=== PATIENT | male | born 1985 | race Caucasian/White ===

== ENCOUNTER → 2020-02-02 14:52 | Outpatient (CLI) | payer BC, SELFPAY ==
[2020-02-02 17:04] LABS: Coronavirus 19 IgG Antibody Negative (Negative); Coronavirus 19 IgM Antibody Negative (Negative)
== END ==
PROVIDERS: Visit Provider Urology
DX: Z01.818 Encounter for other preprocedural examination (principal); Z30.2 Encounter for sterilization
CPT/HCPCS: 36415; 86328

== ENCOUNTER 2020-02-04 08:12 | Day surgery (SDC) | payer BC, SELFPAY ==
[2020-02-02 11:09] VITALS: BMI 46.2
[2020-02-04 08:46] VITALS: BP 131/71; PULSE 74; RESP 16; TEMP 36.9; O2SAT 96
[2020-02-04 10:00] VITALS: BP 137/72; PULSE 72; RESP 16; TEMP 36.7; O2SAT 96
[2020-02-04 10:20] VITALS: BP 137/72; PULSE 72; RESP 16; TEMP 36.7; O2SAT 96
--- NOTE | 2020-02-04 13:49 | HMH.OPNOTE ---
Date of procedure: 02/04/20 Pre-op Diagnosis:: Sterilization Post-op Diagnosis:: Sterilization Procedure performed:: Vasectomy Surgeon:: Gennaro Martinez MD Anesthesia: local Estimated blood loss (mL): 2 Clinical Note:: 34-year-old white male presents for vasectomy today. His initial vasectomy consultation was in June and we went over the operative procedure complications and postoperative instructions. Operative findings:: Patient with normal testicular exam. Procedure successful under local anesthetic. Operative note:: Patient taken to the operating room after informed consent was obtained. On the stretcher he was prepped and draped in the standard surgical fashion. Testicular exam was normal. The left vas was grasped in brought up to the midline raphae. Local anesthetic was placed in and around the skin and facets. After 2 minutes a skin incision was made for about 1/2 inch. A tenaculum was used to grasp the vas was brought up through the incision. Scalpel was used to incise the tissue overlying the vas and the vas proper was grasped with a second tenaculum and the adventitial tissue was dissected away from the vas proper. One clip was placed distally and 2 proximally. A 1 cm segment excised. The ends of the vas were then cauterized. Hemostasis achieved and the vas was dropped back into the left hemiscrotum. Identical procedure was performed on the right side. After both vas were completed a 3-0 chromic was placed in a horizontal mattress fashion in the skin and closed without difficulty. Compression dressing applied. Patient tolerated procedure well and there were no complications. Discharged to the recovery in stable condition will be discharged home with routine instructions and medications. Condition: stable Disposition: same day Specimens:: None Complications:: None
== END 2020-02-04 10:20 | disposition home or self-care (01) ==
PROVIDERS: PCP Physician Assistant; Visit Provider Urology
PROC: (CPT 55250; principal; 2020-02-04 09:00)
DX: Z30.2 Encounter for sterilization (principal); I10 Essential (primary) hypertension; Z82.49 Family history of ischemic heart disease and other diseases of the circulatory system; Z83.3 Family history of diabetes mellitus; Z82.5 Family history of asthma and other chronic lower respiratory diseases; Z82.0 Family history of epilepsy and other diseases of the nervous system; Z79.899 Other long term (current) drug therapy; Z88.0 Allergy status to penicillin
CPT/HCPCS: 55250

== ENCOUNTER 2020-02-14 14:00 | Emergency (ER) | payer BC, SELFPAY ==
[2020-02-14 14:06] VITALS: BP 160/85; PULSE 60; RESP 20; O2SAT 99; BMI 46.2
--- NOTE | 2020-02-14 14:21 | HMH.EDGENADL ---
ED Disposition Clinical Impression: Kidney stone on right side Disposition: Home, Self-Care Condition on Discharge: Good Instructions: DI for Kidney Stones, DI for Acute Abdomen Additional Instructions: You have been evaluated for right flank pain, diagnosed with a right-sided kidney stone. The stone appears to be in transit. Please continue to take ibuprofen and Flomax as prescribed. Take Zofran for nausea. Follow-up with urology in clinic. Return to the emergency department for any fevers, chills, vomiting, other concerns. Prescriptions: Tamsulosin HCl [Flomax 0.4mg capsule] 0.4 mg PO HS #5 cap Transmission Status: Received by [facility] # Ketorolac Tromethamine [Toradol 10mg tablet] 10 mg PO Q6H 3 Days #20 tab Transmission Status: Received by [facility] # Ondansetron [Zofran 4mg ODT] 4 mg PO Q6 PRN #20 tab.rapdis PRN Reason: Nausea Transmission Status: Received by [facility] #[id number] Referrals: Mariajose Moran PA [Primary Care Provider] - Gennaro Martinez MD [Staff Physician] - Time of Disposition: 15:55 - Critical Care Critical Care Time: No Attestation: On , the high probability of a clinically significant, sudden or life threatening deterioration of the following system(s) required my full and direct attention, intervention and personal management. The time I documented below is in addition to time spent performing reported procedures but includes the following listed in this critical care notation. Medical Decision Making - Medical Records Medical records reviewed: Yes: I reviewed the patient's medical records. - Jagdish Inquiry Pt receiving controlled substance: No Vital Signs: 02/14/20 14:06 02/14/20 14:40 Pulse Rate [Radial] 60 76 Respiratory Rate 20 20 Blood Pressure [Right Arm] 160/85 H 114/69 Blood Pressure Mean [Right Arm] 110 84 Blood Pressure Source [Right Arm] Automatic Cuff Automatic Cuff Blood Pressure Position [Right Arm] Sitting 02 Sat by Pulse Oximetry 99 98 Oxygen Delivery Method Room Air Room Air - Lab Data Lab Results 02/14/20 14:11: WBC 8.2, RBC 5.37, Hgb 16.2, Hct 46.5, MCV 86.6, MCH 30.2, MCHC 34.9, RDW 13.7, Plt Count 196, MPV 7.3 L, Neut % (Auto) 67.4, Lymph % (Auto) 25.5, [place] % (Auto) 5.8, Eos % (Auto) 1.1, Baso % (Auto) 0.3, Neut # (Auto) 5.5, Lymph # (Auto) 2.1, [place] # (Auto) 0.5, Eos # (Auto) 0.1, Baso # (Auto) 0.0 02/14/20 14:11: Sodium 138, Potassium 4.2, Chloride 102, Carbon Dioxide 27, Anion Gap 13.2, BUN 19, Creatinine 1.20, Estimated Creat Clear 103, Estimated GFR 70, Est GFR ( Amer) 85, Glucose 104 H, Calcium 9.2, Total Bilirubin 0.6, AST 42, ALT 70, Alkaline Phosphatase 90, Total Protein 7.3, Albumin 4.4, Globulin 2.9, Albumin/Globulin Ratio 1.5 02/14/20 14:49: Urine Color Yellow, Urine Appearance Clear, Urine pH 6.0, Ur Specific [place] 1.020, Urine Protein Negative, Urine Glucose (UA) Negative, Urine Ketones Trace, Urine Blood Trace-i, Urine Nitrate Negative, Urine Bilirubin Negative, Urine Urobilinogen 1.0, Ur Leukocyte Esterase Negative, Urine WBC Occasional, Ur Squamous Epith Cells 3-5, Urine Bacteria Trace Result diagrams: 02/14/20 14:11 02/14/20 14:11 Orders (Tests/Meds): ED MEDICATIONS Discontinued Medications Generic Name Dose Route Start Last Admin Trade Name Roscoe PRN Reason Stop Dose Admin Ioversol 75 ml 02/14/20 15:14 02/14/20 15:15 Rad-Optiray 350 100ml Vial IV 02/14/20 15:15 75 ml ONCE ONE Administration Protocol Ketorolac Tromethamine 30 mg 02/14/20 14:17 02/14/20 14:18 Toradol 30mg/Ml Vial IV 02/14/20 14:18 30 mg ONCE ONE Administration Sodium Chloride 10 ml 02/14/20 15:14 02/14/20 15:15 Rad-Saline Flush 10ml Syringe IV 02/14/20 15:15 10 ml ONCE ONE Administration - CT Data CT Scan: Abdomen Time Received: 15:[address] Reviewed: Yes: I have reviewed the patient's CT results, I have viewed the radiologist's interpret
--- NOTE | 2020-02-14 14:28 | CT_ITS ---
PROCEDURE: CT ABDOMEN PELVIS W CON CLINICAL INDICATION: right flank pain COMPARISON: ABDPELW CT ABD PELVIS W/ CONTRAST from 03/07/2017 TECHNIQUE: IV Contrast: 75ML OPTIRAY 350 Oral Contrast None Axial images obtained with sagittal and coronal reformats. All CT scans at the facility use one or more dose reduction, viz: automated exposure control, ma/kV adjustment per patient size (including targeted exams where dose is matched to indication, i.e. head), or iterative reconstruction technique. FINDINGS: LOWER THORAX: No acute finding ABDOMEN & PELVIS: The liver, gallbladder, spleen, adrenal glands, and pancreas have an unremarkable appearance. There is a nonobstructing 3 mm stone in the lower pole of the left kidney. Delayed nephrogram is noted on the right with minimal dilatation of the right renal collecting system secondary to a 3 mm stone at the right ureterovesical junction. No intestinal obstruction or free air. There are few scattered small mesenteric lymph nodes which are nonspecific. No evidence intestinal obstruction or free air. There is given history of prior appendectomy. Part of the left anterior abdominal wall is not included on the exam. There is colonic diverticulosis but no evidence of diverticulitis. There are mild degenerative changes in the spine IMPRESSION: 3 mm right ureterovesical junction stone with mild right-sided obstructive uropathy. Nonobstructing left nephrolithiasis. Dictated by: Supa Petty MD 02/14/2020 15:49 Electronically signed by Supa Petty MD in [place] 02/14/2020 15:49
[2020-02-14 14:29] LABS: Basophils % 0.3 % (0.1-2.0); Eosinophils # 0.1 K/mm3 (0.0-0.4); Eosinophils % 1.1 % (0.1-12.0); Hematocrit 46.5 % (42.0-52.0); Hemoglobin 16.2 g/dL (14.1-18.0); Lymphocytes # 2.1 K/mm3 (0.7-4.5); Lymphocytes % 25.5 % (10-50); Mean Corpuscular HGB Conc 34.9 g/dL (31.8-35.4); Mean Corpuscular Hemoglobin 30.2 pg (27.0-31.2); Mean Corpuscular Volume 86.6 fl (80-94); Mean Platelet Volume 7.3 fl (7.4-10.4); Monocytes # 0.5 K/mm3 (0.1-1.0); Monocytes % 5.8 % (1.7-9.3); Neutrophils # 5.5 K/mm3 (1.8-7.8); Neutrophils % 67.4 % (37.0-80.0); Platelet Count 196 K/mm3 (142-424); Red Blood Count 5.37 M/mm3 (4.60-6.20); Red Cell Distribution Width 13.7 % (11.5-17.5); White Blood Count 8.2 K/mm3 (4.8-10.8)
[2020-02-14 14:30] LABS: Chloride 102 mmol/L (98-107); Potassium 4.2 mmoL/L (3.5-5.1); Sodium 138 mmol/L (136-145)
[2020-02-14 14:33] LABS: Alanine Aminotransferase 70 U/L (12-78); Albumin Level 4.4 g/dl (3.5-5.0); Albumin/Globulin Ratio 1.5 (1.1-1.8); Alkaline Phosphatase 90 U/L (38-126); Anion Gap 13.2 mEq/L (5-15); Aspartate Amino Transferase 42 U/L (17-59); Bilirubin,Total 0.6 mg/dl (0.2-1.3); Blood Urea Nitrogen 19 mg/dl (9-20); Calcium 9.2 mg/dl (8.4-10.2); Carbon Dioxide 27 mmol/L (22.0-30.0); Creatinine Clearance Estimated 103 mL/min (50-200); Estimated Glomerular Filt Rate 70 ml/min (>60); GFR (African American) 85 ML/MIN (>60); Globulin 2.9 g/dL (1.3-3.2); Glucose 104 mg/dl (74-100); Total Protein,Serum 7.3 g/dl (6.3-8.2)
[2020-02-14 14:40] VITALS: BP 114/69; PULSE 76; RESP 20; O2SAT 98
[2020-02-14 14:57] LABS: Microscopic, Urine URINE MICROSCOPIC (MICROSCOPIC)
[2020-02-14 15:27] LABS: Appearance,Urine CLEAR (Clear); Bilirubin,Urine Negative (Negative); Blood, Urine TRACE-I (Negative); Color,Urine YELLOW (Yellow); Glucose,Urine (UA) Negative (Negative); Ketones,Urine TRACE (Negative); Leukocyte Esterase,Urine Negative (Negative); Nitrate,Urine Negative (Negative); Protein,Urine Negative (Negative)
[2020-02-14 15:37] LABS: Bacteria,Urine Trace /lpf; WBC,Urine Occasional #/hpf (0-3)
[2020-02-14 16:49] VITALS: BP 114/69; PULSE 76; RESP 20; TEMP 36.7; O2SAT 98
== END 2020-02-14 16:52 | disposition home or self-care (01) ==
PROVIDERS: Emergency Provider Emergency Medicine; PCP Physician Assistant
DX: N20.0 Calculus of kidney (principal); Z88.0 Allergy status to penicillin; R03.0 Elevated blood-pressure reading, without diagnosis of hypertension
CPT/HCPCS: 74177; 80053; 81001; 85025; 96374; 99283; Q9967

== ENCOUNTER 2020-08-24 08:32 | Emergency (ER) | payer BC, SELFPAY ==
[2020-08-24 08:43] VITALS: BP 174/107; PULSE 84; RESP 17; TEMP 36.6; O2SAT 98; BMI 44.9
--- NOTE | 2020-08-24 08:51 | HMH.EDHA ---
ED Disposition Clinical Impression: Headache Qualifiers: Headache type: tension-type Headache chronicity pattern: unspecified pattern Intractability: not intractable Qualified Code(s): G44.209 - Tension-type headache, unspecified, not intractable Disposition: Home, Self-Care Condition on Discharge: Good Referrals: María Field MD [Primary Care Provider] - 3 days - Critical Care Critical Care Time: No Attestation: On 08/24/20, the high probability of a clinically significant, sudden or life threatening deterioration of the following system(s) required my full and direct attention, intervention and personal management. The time I documented below is in addition to time spent performing reported procedures but includes the following listed in this critical care notation. Medical Decision Making - Medical Records Medical records reviewed: Yes: I reviewed the patient's medical records. - Jagdish Inquiry Pt receiving controlled substance: No Vital Signs: 08/24/20 08:43 Temperature 97.8 F Temperature Source Oral Pulse Rate [Right Brachial] 84 Respiratory Rate 17 Blood Pressure [Right Arm] 174/107 H Blood Pressure Mean [Right Arm] 129 Blood Pressure Source [Right Arm] Automatic Cuff Blood Pressure Position [Right Arm] Sitting 02 Sat by Pulse Oximetry 98 Oxygen Delivery Method Room Air Orders (Tests/Meds): ED MEDICATIONS Discontinued Medications Generic Name Dose Route Start Last Admin Trade Name Vitalyq PRN Reason Stop Dose Admin Dexamethasone 10 mg 08/24/20 08:50 08/24/20 08:59 Dexamethasone 4mg Tablet PO 08/24/20 08:51 10 mg ONCE ONE Administration Ketorolac Tromethamine 60 mg 08/24/20 08:50 08/24/20 08:58 Ketorolac 60mg/2ml Vial IM 08/24/20 08:51 60 mg ONCE ONE Administration Medical Decision Narrative: Patient with headache likely related to poorly controlled hypertension and increased stress. Advise close follow-up with primary care concerning blood pressure control and management of his anxiety/stress. He does not have any lateralizing motor or sensory changes that would suggest CVA. No recent illnesses or fevers that would suggest acute infectious etiology, intracranial abscess, meningitis. Symptoms are intermittent and no vertigo, unlikely acute intracranial mass. Slow, progressive symptoms are inconsistent with subarachnoid hemorrhage. Headache is not bad all the time and does improve with ibuprofen and Tylenol. Given Toradol, Decadron here with some improvement of symptoms. Headache HPI - General Chief Complaint: Headache Stated Complaint: migraine Time Seen by Provider: 08/24/20 08:51 Mode of Arrival: Ambulatory Limitations: No Limitations Description of Symptoms (Recalled from ER Triage Doc. by RN): Patient reports a severe headache x1 week. - History of Present Illness HPI Narrative: This is a 34-year-old male with a past medical history significant for hypertension who presents to the emergency department for slowly progressive headache over the last week. He has tried intermittent ibuprofen and Tylenol, but only when his headache is really bad . He states it is worse when he opens and closes his jaw and when he stretches the right side of his neck/shoulder. No trauma. No visual changes or lateralizing motor or sensory changes. He denies any fever. No vomiting. No photophobia. He does not typically have headaches, but does admit that he has not been taking his blood pressure medication as prescribed and has been under a lot of increased stress lately. He now has 7 children in his house as he just recently had to take in a family member's children and has 4 of his own. No chest pain. - Related Data Previous Rx's Medication Instructions Recorded Ketorolac Tromethamine [Toradol 10 mg PO Q6H 3 Days #20 tab 02/14/20 10mg tablet] Ondansetron [Zofran 4mg ODT] 4 mg PO Q6 PRN #20 tab.rapdis 02/14/20 Tamsulosin HCl [Flomax 0.4mg 0.4 mg PO HS #5
[2020-08-24 09:36] VITALS: BP 170/102; PULSE 80; RESP 17; TEMP 36.6; O2SAT 98
== END 2020-08-24 09:39 | disposition home or self-care (01) ==
PROVIDERS: Emergency Provider Emergency Medicine; PCP Family Medicine
DX: G44.209 Tension-type headache, unspecified, not intractable (principal); I10 Essential (primary) hypertension; Z79.899 Other long term (current) drug therapy; Z88.0 Allergy status to penicillin
CPT/HCPCS: 96372; 99281

== ENCOUNTER → 2020-10-19 15:35 | Outpatient (CLI) | payer BC, SELFPAY | PROVIDERS: PCP Family Medicine; Visit Provider Family Medicine | DX: G47.30 Sleep apnea, unspecified (principal); I10 Essential (primary) hypertension; R40.0 Somnolence; R06.83 Snoring; E66.9 Obesity, unspecified | CPT/HCPCS: G0399 ==

== ENCOUNTER 2021-05-08 10:50 | Emergency (ER) | payer BC, SELFPAY ==
[2021-05-08] VITALS (10 sets, daily range): BP systolic 121–141; BP diastolic 56–93; PULSE 77–112; RESP 18–20; TEMP 36.9–37.1; O2SAT 96–97; BMI 43.6
--- NOTE | 2021-05-08 11:05 | ECG_ITS ---
APPROVED REPORT Exam: Resting ECG HR:98 bpm ECG Measurements Heart Rate 98 AXES MT 162 P 20 QRSd 94 QRS 124 QT 346 T 13 QTc 441 Conclusion Normal sinus rhythm Right axis deviation Incomplete right bundle branch block Cannot rule out Anterior infarct, age undetermined Abnormal ECG Electronically signed by : Doug Alfonso MD 05/11/2021 14:32:08
--- NOTE | 2021-05-08 11:22 | XR_ITS ---
PROCEDURE: XR CHEST 2V CLINICAL HISTORY: shortness of breath COMPARISON: CR CXR2 CHEST-AP VIEW ONLY from 03/07/2017 FINDINGS: There is borderline cardiomegaly. The vascularity appears normal. There are subtle scattered ill-defined opacities in both perihilar regions and left lower lobe. The upper lung zarco are clear. There is no pleural fluid. Bilateral metallic nipple rings are seen. There is a large calcified right paratracheal node. IMPRESSION: Subtle ill-defined bilateral pneumonic infiltrates and probably early Covid19 pneumonia is a consideration Dictated by: Dr. Timo Hayward MD 05/08/2021 11:50 Dr. Timo Hayward MD in [place] 05/08/2021 11:50
--- NOTE | 2021-05-08 11:31 | HMH.EDGENADL ---
ED Disposition Clinical Impression: COVID-19 virus detected Disposition: Home, Self-Care Condition on Discharge: Good Referrals: María Field MD [Primary Care Provider] - - Critical Care Critical Care Time: No Attestation: On 05/08/21, the high probability of a clinically significant, sudden or life threatening deterioration of the following system(s) required my full and direct attention, intervention and personal management. The time I documented below is in addition to time spent performing reported procedures but includes the following listed in this critical care notation. Medical Decision Making - Medical Records Medical records reviewed: Yes: I reviewed the patient's medical records. - Jagdish Inquiry Pt receiving controlled substance: No Vital Signs: 05/08/21 11:24 05/08/21 13:00 05/08/21 13:15 Temperature 98.6 F 98.6 F 98.6 F Temperature Source Oral Oral Pulse Rate 88 82 Pulse Rate [Left Radial] 112 H Respiratory Rate 20 18 18 Blood Pressure 140/67 138/61 Blood Pressure [Right Arm] 141/93 H Blood Pressure Mean [Right Arm] 109 02 Sat by Pulse Oximetry 96 96 96 Oxygen Delivery Method Room Air Room Air Room Air 05/08/21 13:30 05/08/21 13:45 Temperature 98.7 F 98.6 F Temperature Source Oral Pulse Rate 85 86 Pulse Rate [Left Radial] Respiratory Rate 18 18 Blood Pressure 136/56 L 121/59 L Blood Pressure [Right Arm] Blood Pressure Mean [Right Arm] 02 Sat by Pulse Oximetry 97 96 Oxygen Delivery Method Room Air Room Air - Lab Data Lab Results 05/08/21 11:15: SARS-CoV-2 (PCR) Detected A, Influenza A Untype (PCR) Not detected, Influenza Type B (PCR) Not detected 05/08/21 11:20: WBC 3.6 L, RBC 5.60, Hgb 16.3, Hct 47.6, MCV 84.8, MCH 29.1, MCHC 34.4, RDW 14.6, Plt Count 109 L, MPV 7.8, Neut % (Auto) 71.1, Lymph % (Auto) 22.3, [place] % (Auto) 5.5, Eos % (Auto) 0.3, Baso % (Auto) 0.9, Neut # (Auto) 2.6, Lymph # (Auto) 0.8, [place] # (Auto) 0.2, Eos # (Auto) 0.0, Baso # (Auto) 0.0 05/08/21 11:20: Sodium 135 L, Potassium 3.6, Chloride 99, Carbon Dioxide 28, Anion Gap 11.6, BUN 14, Creatinine 0.70, Estimated Creat Clear 175, Estimated GFR 130, Est GFR ( Amer) 157, Glucose 127 H, Calcium 8.5, Total Bilirubin 0.3, AST 58, ALT 61, Alkaline Phosphatase 87, Total Protein 6.8, Albumin 4.1, Globulin 2.7, Albumin/Globulin Ratio 1.5 Result diagrams: 05/08/21 11:20 05/08/21 11:20 Orders (Tests/Meds): ED MEDICATIONS Generic Name Dose Route Start Last Admin Trade Name Freq PRN Reason Stop Dose Admin Diphenhydramine HCl 25 mg 05/08/21 12:45 Diphenhydramine 50mg/Ml Vial IV 05/08/21 16:00 ONCE PRN INFUSION REACTION Hydrocortisone Sodium Succinate 100 mg 05/08/21 12:45 Hydrocortisone Sod Succinate 100mg Vial IV 05/08/21 16:00 ONCE PRN INFUSION REACTION Sodium Chloride 1,000 mls @ 100 mls/hr 05/08/21 12:45 Sod Chlor 0.9% 1000ml Bag IV 05/08/21 16:00 .Q10H PRN INFUSION REACTION Loratadine 10 mg 05/08/21 12:45 Loratadine 10mg Tablet PO 05/08/21 16:00 ONCE PRN INFUSION REACTION Discontinued Medications Generic Name Dose Route Start Last Admin Trade Name Freq PRN Reason Stop Dose Admin Sodium Chloride 1,000 mls @ 999 mls/hr 05/08/21 11:30 Sod Chlor 0.9% 1000ml Bag IV 05/08/21 12:30 .Q1H1M DARLIN Casirivimab/Imdevimab 10 ml/ 110 mls @ 220 mls/hr 05/08/21 12:45 Sodium Chloride IV 05/08/21 13:14 ONCE ONE Medical Decision Narrative: Patient is an obese 35-year-old male presents the ED today for evaluation of viral symptoms. Patient is well-appearing on initial evaluation, in no acute distress nontachypneic normal oxygen saturation no tachycardia. Will evaluate patient with COVID-19 swab, CBC, CMP, 1 L of IV fluids and IV access obtained. We will also obtain a two-view chest x-ray for evaluation of pneumonia. Patient likely has COVID-19, I briefly discussed monoclonal antibody therapy which we will be
[2021-05-08 11:34] LABS: Influenza A, PCR Not Detected (NotDetected); Influenza B, PCR Not Detected (NotDetected)
[2021-05-08 11:37] LABS: Chloride 99 mmol/L (98-107); Potassium 3.6 mmoL/L (3.5-5.1); Sodium 135 mmol/L (136-145)
[2021-05-08 11:39] LABS: Alanine Aminotransferase 61 U/L (12-78); Aspartate Amino Transferase 58 U/L (17-59); Blood Urea Nitrogen 14 mg/dl (9-20); Creatinine Clearance Estimated 175 mL/min (50-200); Estimated Glomerular Filt Rate 130 ml/min (>60); GFR (African American) 157 ML/MIN (>60)
[2021-05-08 11:40] LABS: Albumin Level 4.1 g/dl (3.5-5.0); Albumin/Globulin Ratio 1.5 (1.1-1.8); Alkaline Phosphatase 87 U/L (38-126); Anion Gap 11.6 mEq/L (5-15); Bilirubin,Total 0.3 mg/dl (0.2-1.3); Calcium 8.5 mg/dl (8.4-10.2); Carbon Dioxide 28 mmol/L (22.0-30.0); Globulin 2.7 g/dL (1.3-3.2); Glucose 127 mg/dl (74-100); Total Protein,Serum 6.8 g/dl (6.3-8.2)
[2021-05-08 11:41] LABS: Basophils % 0.9 % (0.1-2.0); Eosinophils % 0.3 % (0.1-12.0); Hematocrit 47.6 % (42.0-52.0); Hemoglobin 16.3 g/dL (14.1-18.0); Lymphocytes # 0.8 K/mm3 (0.7-4.5); Lymphocytes % 22.3 % (10-50); Mean Corpuscular HGB Conc 34.4 g/dL (31.8-35.4); Mean Corpuscular Hemoglobin 29.1 pg (27.0-31.2); Mean Corpuscular Volume 84.8 fl (80-94); Mean Platelet Volume 7.8 fl (7.4-10.4); Monocytes # 0.2 K/mm3 (0.1-1.0); Monocytes % 5.5 % (1.7-9.3); Neutrophils # 2.6 K/mm3 (1.8-7.8); Neutrophils % 71.1 % (37.0-80.0); Platelet Count 109 K/mm3 (142-424); Red Cell Distribution Width 14.6 % (11.5-17.5); White Blood Count 3.6 K/mm3 (4.8-10.8)
[2021-05-08 11:55] LABS: Coronavirus 19, PCR Detected (NotDetected)
== END 2021-05-08 14:45 | disposition home or self-care (01) ==
PROVIDERS: Emergency Provider Student in an Organized Health Care Education/Training Program; PCP Family Medicine
DX: U07.1 COVID-19 (principal); E86.0 Dehydration; I10 Essential (primary) hypertension; F41.9 Anxiety disorder, unspecified
CPT/HCPCS: 71046; 80053; 85025; 93005; 96365; 99283; C9803; U0003; U0005

== ENCOUNTER → 2022-03-05 14:32 | Outpatient (CLI) | payer BC, SELFPAY ==
[2022-03-05 17:42] LABS: Basophils # 0.1 K/mm3 (0-0.2); Basophils % 0.7 % (0.1-2.0); Eosinophils # 0.2 K/mm3 (0.0-0.4); Eosinophils % 2.4 % (0.1-12.0); Hematocrit 49.6 % (42.0-52.0); Hemoglobin 15.7 g/dL (14.1-18.0); Lymphocytes # 1.6 K/mm3 (0.7-4.5); Mean Corpuscular HGB Conc 31.7 g/dL (31.8-35.4); Mean Corpuscular Hemoglobin 28.7 pg (27.0-31.2); Mean Corpuscular Volume 90.5 fl (80-94); Mean Platelet Volume 8.5 fl (7.4-10.4); Monocytes # 0.4 K/mm3 (0.1-1.0); Neutrophils # 4.7 K/mm3 (1.8-7.8); Neutrophils % 67.9 % (37.0-80.0); Platelet Count 223 K/mm3 (142-424); Red Blood Count 5.48 M/mm3 (4.60-6.20); Red Cell Distribution Width 14.4 % (11.5-17.5); White Blood Count 6.9 K/mm3 (4.8-10.8)
[2022-03-05 17:43] LABS: Alanine Aminotransferase 62 U/L (12-78); Albumin Level 4.2 g/dl (3.5-5.0); Albumin/Globulin Ratio 1.7 (1.1-1.8); Alkaline Phosphatase 104 U/L (38-126); Aspartate Amino Transferase 40 U/L (17-59); Bilirubin,Total 0.6 mg/dl (0.2-1.3); Blood Urea Nitrogen 15 mg/dl (9-20); Calcium 9.1 mg/dl (8.4-10.2); Carbon Dioxide 25 mmol/L (22.0-30.0); Chloride 103 mmol/L (98-107); Chol/HDL Ratio 5.7 (1-3.5); Cholesterol 195 mg/dl (140-200); Estimated Glomerular Filt Rate 111 ml/min (>60); GFR (African American) 134 ML/MIN (>60); Globulin 2.5 g/dL (1.3-3.2); Glucose 99 mg/dl (74-100); HDL Cholesterol 34 mg/dl (40-60); Sodium 136 mmol/L (136-145); Total Protein,Serum 6.7 g/dl (6.3-8.2); Triglycerides 227 mg/dl (30-150); VLDL Cholesterol 45 mg/dL (0-40)
[2022-03-05 18:00] LABS: 25-OH Vitamin D, Total 40.6 ng/mL (30-100)
[2022-03-07 15:19] LABS: Direct LDL Cholesterol 110 mg/dL (100-129)
== END ==
PROVIDERS: PCP Physician Assistant; Visit Provider Physician Assistant
DX: I10 Essential (primary) hypertension (principal); F41.9 Anxiety disorder, unspecified; E66.01 Morbid (severe) obesity due to excess calories; Z68.42 Body mass index [BMI] 45.0-49.9, adult
CPT/HCPCS: 80053; 80061; 82306; 84443; 85025

== ENCOUNTER → 2022-03-05 15:13 | Outpatient (CLI) | payer BC, SELFPAY | PROVIDERS: PCP Physician Assistant; Visit Provider Physician Assistant | DX: I10 Essential (primary) hypertension (principal) ==

== ENCOUNTER 2022-07-29 09:12 | Emergency (ER) | payer BC, SELFPAY ==
[2022-07-29 09:12] VITALS: BP 196/106; PULSE 82; RESP 18; TEMP 36.6; O2SAT 95; BMI 41.2
[2022-07-29 09:17] VITALS: BMI 42.3
--- NOTE | 2022-07-29 09:17 | CT_ITS ---
FINAL REPORT TECHNIQUE: Thin section axial images were obtained from the lung bases to the pubic symphysis without IV contrast. Coronal reconstruction images were obtained from the axial data. Exam was performed using dose reduction technique. CLINICAL HISTORY: stone protocol-- left lower flank pain COMPARISON: 02/14/2020 FINDINGS: There is mild left hydroureteronephrosis to the level of an obstructing, 6 mm distal left ureteral stone. No additional renal or ureteral stones are identified. The remaining unenhanced solid abdominal organs and gallbladder are unremarkable. There is no evidence of small bowel obstruction. The appendix is not identified. There are no secondary findings of appendicitis. GI tract is without acute abnormality. There is no lymphadenopathy or ascites. No acute osseous abnormality is identified. IMPRESSION: Obstructing, 6 mm distal left ureteral stone. Reviewed, Interpreted and Dictated by Magi Almazan MD Transcribed by Alisha Chu Authenticated and [facility]
--- NOTE | 2022-07-29 09:34 | PC.NURSE ---
pt going to ct
--- NOTE | 2022-07-29 09:35 | PC.NURSE ---
pt returned from radiology via wheelchair.
[2022-07-29 09:37] LABS: Microscopic, Urine URINE MICROSCOPIC (MICROSCOPIC)
[2022-07-29 09:38] LABS: Basophils # 0.1 K/mm3 (0-0.2); Basophils % 1.1 % (0.1-2.0); Eosinophils # 0.1 K/mm3 (0.0-0.4); Eosinophils % 1.7 % (0.1-12.0); Hematocrit 47.3 % (42.0-52.0); Hemoglobin 16.7 g/dL (14.1-18.0); Lymphocytes # 1.9 K/mm3 (0.7-4.5); Lymphocytes % 22.5 % (10-50); Mean Corpuscular HGB Conc 35.3 g/dL (31.8-35.4); Mean Corpuscular Hemoglobin 29.4 pg (27.0-31.2); Mean Corpuscular Volume 83.5 fl (80-94); Mean Platelet Volume 8.6 fl (7.4-10.4); Monocytes # 0.5 K/mm3 (0.1-1.0); Monocytes % 5.6 % (1.7-9.3); Neutrophils # 5.7 K/mm3 (1.8-7.8); Neutrophils % 69.1 % (37.0-80.0); Platelet Count 243 K/mm3 (142-424); Red Blood Count 5.66 M/mm3 (4.60-6.20); Red Cell Distribution Width 13.8 % (11.5-17.5); White Blood Count 8.3 K/mm3 (4.8-10.8)
--- NOTE | 2022-07-29 09:43 | HMH.EDABDPAI ---
Discharge Plan Disposition Patient Disposition: Home, Self-Care Chief Complaint: Abdominal Pain Prescriptions Prescriptions: No Action (DME) pen needle, diabetic [Comfort EZ Pen [place]] 32 gauge x 3/16 needle See Rx Instructions .Route Qty: 50 5RF Rx Instructions: As directed losartan 25 mg tablet 25 mg PO DAILY buspirone 7.5 mg tablet 7.5 mg PO BID Saxenda 3 mg/0.5 mL (18 mg/3 mL) pen injector See Rx Instructions .ROUTE .COMPLEX Rx Instructions: INJECT SUBCUTANEOUS ONCE DAILY. WEEK 1 IS 0.6MG, WEEK 2 IS 1.2MG, WEEK 3 IS 1.8MG, WEEK 4 IS 2.4MG, THEN 3MG DAILY THEREAFTER Wegovy 0.25 mg/0.5 mL pen injector 0.25 mg SQ WEEKLY Rx Instructions: administer weeks 1 through 4 of therapy, then increase to 0.5 (call for next dose) Referrals Follow up/Referrals: Mariajose Moran PA [Primary Care Provider] - See instructions Gennaro Martinez MD [Referring] - See instructions Clinical Impressions Clinical Impression: Renal colic on left side Instructions Patient Instructions: DI for Acute Abdominal Pain Discharge ED Provider: Josh Zaldivar Abdominal Pain HPI General Chief Complaint: Abdominal Pain Stated Complaint: Possible kidney stone, low back pain Time Seen by Provider: 07/29/22 09:43 Mode of Arrival: Ambulatory Source of Information: Patient Limitations: No Limitations Description of Symptoms (Recalled from ER Triage Doc. by RN): pt states he has had left sided flank pain for 3 days, states it was intermittent and now it is constant and a sharp pain, states he has a history of kidney stones History of Present Illness HPI narrative: progressive lt flank pain over the last 3 days with hx of kidney stones complaint: flank pain Onset (ago): day(s) Consistency: colicky Location: L flank Severity: severe Associated symptoms: nausea Related Data Home Medications Medication Instructions Recorded Confirmed buspirone 7.5 mg tablet 7.5 mg PO BID Anxiety 07/29/22 07/29/22 liraglutide (weight loss) 3 mg/0.5 See Rx Instructions .Route 07/29/22 07/29/22 mL (18 mg/3 mL) subcut pen .COMPLEX Weight loss injector (Saxenda) losartan 25 mg tablet 25 mg PO DAILY Hypertension 07/29/22 07/29/22 semaglutide (weight loss) 0.25 0.25 mg SQ WEEKLY Weight loss 07/29/22 07/29/22 mg/0.5 mL subcutaneous pen injector (Wegovy) Previous Rx's Medication Instructions Recorded pen needle, diabetic 32 gauge x #50 ea 03/06/2209/26 (Comfort EZ Pen [place]) Allergies Allergy/AdvReac Type Severity Reaction Status Date / Time No Known Allergies Allergy Verified 03/05/22 08:55 [facility] Disclaimer: The information contained in this section may have been updated after the patient was seen, as this information can be updated by other users. Medical History (Updated 07/29/22 @ 10:27 by Josh Zaldivar MD) Anxiety Hypertension Low back pain Obesity, Class III, BMI 40-49.9 (morbid obesity) Social History Smoking Status: Never smoker alcohol intake: never current occupational status: employed Travel in the last 8 weeks: None household members: spouse housing: house current occupation: [employer] caffeine: Yes ROS Obtained: Yes All systems reviewed & no additional complaints except as documented Physical Exam General General appearance: alert Head Head exam: normocephalic Eye Eye exam: Present PERRL and EOMI ENT ENT exam: Present mucous membranes moist Neck Neck exam: Present trachea midline Respiratory Respiratory exam: Absent respiratory distress Cardiovascular Cardiovascular exam: Present regular rate Abdominal Exam Abdominal exam: Present soft Extremities Exam Extremities exam: Present full ROM Neurological Exam Neurological exam: Present alert, oriented X3 and CN II-XII intact Psychiatric Psychiatric exam: Present normal affect Skin Skin exam: Absent rash Medical Decision Making Medical Records Med
--- NOTE | 2022-07-29 09:43 | PC.NURSE ---
notified ER MD pt continuing to have pain, ER MD gave verbal order for dilaudid 1mg IV once
[2022-07-29 09:44] LABS: Appearance,Urine CLOUDY (Clear); Blood, Urine 3+ (Negative); Color,Urine DK YELLOW (Yellow); Glucose,Urine (UA) Negative (Negative); Ketones,Urine Negative (Negative); Leukocyte Esterase,Urine Negative (Negative); Nitrate,Urine Negative (Negative); PH,Urine 5.5 (5.0-8.5); Protein,Urine 1+ (Negative); Specific Gravity, Urine >= 1.030 (1.005-1.030); Urobilinogen,Urine 0.2 EU/dl (0.2)
[2022-07-29 09:46] LABS: Bilirubin,Urine 1+ (Negative)
[2022-07-29 09:49] LABS: Alanine Aminotransferase 61 U/L (12-78); Albumin Level 4.9 g/dl (3.5-5.0); Albumin/Globulin Ratio 1.6 (1.1-1.8); Alkaline Phosphatase 82 U/L (38-126); Anion Gap 14.3 mEq/L (5-15); Aspartate Amino Transferase 40 U/L (17-59); Bilirubin,Total 0.8 mg/dl (0.2-1.3); Blood Urea Nitrogen 23 mg/dl (9-20); Calcium 9.4 mg/dl (8.4-10.2); Carbon Dioxide 27 mmol/L (22.0-30.0); Chloride 99 mmol/L (98-107); Creatinine Clearance Estimated 110 mL/min (50-200); Estimated Glomerular Filt Rate 77 ml/min (>60); GFR (African American) 93 ML/MIN (>60); Glucose 104 mg/dl (74-100); Potassium 4.3 mmoL/L (3.5-5.1); Sodium 136 mmol/L (136-145); Total Protein,Serum 7.9 g/dl (6.3-8.2)
[2022-07-29 10:00] VITALS: BP 136/71; PULSE 68; O2SAT 97
--- NOTE | 2022-07-29 10:04 | PC.NURSE ---
pt states pain is much better. still has some pain but it is tolerable.
[2022-07-29 10:20] LABS: RBC,Urine TNTC #/hpf (0-3)
[2022-07-29 10:21] LABS: Bacteria,Urine Trace /lpf
--- NOTE | 2022-07-29 10:32 | PC.NURSE ---
dr sandy at bedside to update pt
--- NOTE | 2022-07-29 10:43 | PC.NURSE ---
pt reports pain relief at this time, pt resting in bed, states no needs. Pt reports his will be coming to pick him up.
[2022-07-29 10:53] VITALS: BP 143/56; PULSE 78; RESP 18; TEMP 36.6; O2SAT 97
== END 2022-07-29 11:17 | disposition home or self-care (01) ==
PROVIDERS: Emergency Provider Emergency Medicine; PCP Physician Assistant
DX: N23 Unspecified renal colic (principal); F41.9 Anxiety disorder, unspecified; I10 Essential (primary) hypertension
CPT/HCPCS: 74176; 80053; 81001; 85025; 96361; 96374; 96375; 99285; J2405

== ENCOUNTER 2022-08-08 12:25 | Emergency (ER) | payer BC, SELFPAY ==
[2022-08-08 12:25] VITALS: BP 162/71; PULSE 70; RESP 18; TEMP 36.3; O2SAT 98; BMI 41.7
--- NOTE | 2022-08-08 12:42 | CT_ITS ---
FINAL REPORT TECHNIQUE: Axial images through the abdomen and pelvis was performed by computed tomography. This study was performed with techniques to keep radiation doses as low as reasonably achievable (ALARA). Individualized dose reduction techniques using automated exposure control or adjustment of mA and/or kV according to the patient's size were employed. CLINICAL HISTORY: kidney stone protocol COMPARISON: 07/29/2022 FINDINGS: Abdomen: Lung bases are clear. There is fatty infiltration of the liver. The spleen, pancreas and adrenal glands have a normal CT appearance in their limited unenhanced state. The kidneys show no stone disease or obstruction. No obvious renal mass is present. There is stable, mild left hydronephrosis and hydroureter secondary to a 7 x 3 mm distal left ureteral stone. The bowel is unremarkable. Pelvis: The appendix is not visualized but there are no secondary findings to suggest appendicitis. Distal left ureteral stone is seen on images 115 and 116. The bladder is decompressed. No fluid collection or adenopathy is seen. IMPRESSION: Stable left hydronephrosis and hydroureter secondary to to an obstructing distal left ureteral stone. Reviewed, Interpreted and Dictated by Aroldo Tejeda MD Transcribed by Patricia Clay Authenticated and [facility]
[2022-08-08 12:44] LABS: Microscopic, Urine URINE MICROSCOPIC (MICROSCOPIC)
[2022-08-08 12:48] LABS: Appearance,Urine CLEAR (Clear); Bilirubin,Urine Negative (Negative); Blood, Urine TRACE-L (Negative); Color,Urine YELLOW (Yellow); Glucose,Urine (UA) Negative (Negative); Ketones,Urine Negative (Negative); Leukocyte Esterase,Urine Negative (Negative); Nitrate,Urine Negative (Negative); Protein,Urine Negative (Negative); Specific Gravity, Urine >= 1.030 (1.005-1.030); Urobilinogen,Urine 0.2 EU/dl (0.2)
--- NOTE | 2022-08-08 12:49 | PC.NURSE ---
DR. PARSONS AT BEDSIDE TO EVALUATE PT
[2022-08-08 12:57] LABS: Basophils # 0.1 K/mm3 (0-0.2); Basophils % 0.7 % (0.1-2.0); Eosinophils # 0.2 K/mm3 (0.0-0.4); Eosinophils % 1.5 % (0.1-12.0); Hematocrit 46.3 % (42.0-52.0); Hemoglobin 16.1 g/dL (14.1-18.0); Lymphocytes # 1.8 K/mm3 (0.7-4.5); Lymphocytes % 14.4 % (10-50); Mean Corpuscular HGB Conc 34.7 g/dL (31.8-35.4); Mean Corpuscular Hemoglobin 29.6 pg (27.0-31.2); Mean Corpuscular Volume 85.4 fl (80-94); Mean Platelet Volume 7.6 fl (7.4-10.4); Monocytes # 0.6 K/mm3 (0.1-1.0); Monocytes % 4.6 % (1.7-9.3); Neutrophils # 9.9 K/mm3 (1.8-7.8); Neutrophils % 78.8 % (37.0-80.0); Platelet Count 220 K/mm3 (142-424); Red Blood Count 5.43 M/mm3 (4.60-6.20); Red Cell Distribution Width 13.7 % (11.5-17.5); White Blood Count 12.6 K/mm3 (4.8-10.8)
--- NOTE | 2022-08-08 13:02 | HMH.EDGENADL ---
Discharge Plan Disposition Patient Disposition: Home, Self-Care Condition: Good Prescriptions Prescriptions: New ketorolac 10 mg Tablet 10 mg PO Q6H PRN (Reason: Mild Pain (Scale Score 1-4)) Qty: 20 0RF ondansetron 4 mg tablet,disintegrating 4 mg PO TID PRN (Reason: nausea and vomiting) 1 Days Qty: 15 0RF No Action (DME) pen needle, diabetic [Comfort EZ Pen [place]] 32 gauge x 3/16 needle See Rx Instructions .Route Qty: 50 5RF Rx Instructions: As directed hydrocodone-acetaminophen 5-325 mg tablet 1 tab PO QID PRN (Reason: pain) Qty: 10 0RF tamsulosin [Flomax] 0.4 mg capsule 0.4 mg PO DAILY Qty: 10 0RF losartan 25 mg tablet 25 mg PO DAILY buspirone 7.5 mg tablet 7.5 mg PO BID Saxenda 3 mg/0.5 mL (18 mg/3 mL) pen injector See Rx Instructions .ROUTE .COMPLEX Rx Instructions: INJECT SUBCUTANEOUS ONCE DAILY. WEEK 1 IS 0.6MG, WEEK 2 IS 1.2MG, WEEK 3 IS 1.8MG, WEEK 4 IS 2.4MG, THEN 3MG DAILY THEREAFTER Wegovy 0.25 mg/0.5 mL pen injector 0.25 mg SQ WEEKLY Rx Instructions: administer weeks 1 through 4 of therapy, then increase to 0.5 (call for next dose) Referrals Follow up/Referrals: Mariajose Moran PA [Primary Care Provider] - See instructions Activity Restrictions/Add. Instructions Additional Instructions/Restrictions: Follow-up with urology as instructed. Return to emergency room for worsening pain vomiting or any other concerns within the next few days Clinical Impressions Clinical Impression: Renal colic on left side Instructions Patient Instructions: DI for Acute Abdominal Pain Discharge ED Provider: Colin Sterling General Adult HPI General Chief complaint: Abdominal Pain Stated complaint: possible kidney stones Time Seen by Provider: 08/08/22 12:30 Mode of Arrival: Ambulatory Limitations: No Limitations Description of Symptoms (Recalled from ER Triage Doc. by RN): PT WITH KNOWN KIDNEY STONE, REPORTS LEFT FLANK AND ABDOMINAL PAIN, DECREASED URINARY OUTPUT History of Present Illness HPI narrative: 36-year-old male has persistent left sided pain. He was evaluated 10 days ago and had an obstructing left-sided ureter stone. Since that time he has had persistent pain. He also says that he has decreased urine output despite drinking water. No fever no chills no dysuria. No nausea vomiting diarrhea abdominal pain or chest pain. He has appointment with urology tomorrow Onset (ago): week(s) (1) Severity: moderate Quality: stabbing Consistency: intermittent Related Data Home Medications Medication Instructions Recorded Confirmed buspirone 7.5 mg tablet 7.5 mg PO BID Anxiety 07/29/22 07/29/22 liraglutide (weight loss) 3 mg/0.5 See Rx Instructions .Route 07/29/22 07/29/22 mL (18 mg/3 mL) subcut pen .COMPLEX Weight loss injector (Saxenda) losartan 25 mg tablet 25 mg PO DAILY Hypertension 07/29/22 07/29/22 semaglutide (weight loss) 0.25 0.25 mg SQ WEEKLY Weight loss 07/29/22 07/29/22 mg/0.5 mL subcutaneous pen injector (Wegovy) Previous Rx's Medication Instructions Recorded pen needle, diabetic 32 gauge x #50 ea 03/06/2209/26 (Comfort EZ Pen [place]) hydrocodone 5 mg-acetaminophen 325 1 tab PO QID PRN pain #10 tabs 07/29/22 mg tablet tamsulosin 0.4 mg capsule (Flomax) 0.4 mg PO DAILY #10 caps 07/29/22 ketorolac 10 mg tablet 10 mg PO Q6H PRN Mild Pain (Scale 08/08/22 Score 1-4) #20 tabs ondansetron 4 mg disintegrating 4 mg PO TID PRN nausea and 08/08/22 tablet vomiting 24 hours #15 tabs Allergies Allergy/AdvReac Type Severity Reaction Status Date / Time No Known Allergies Allergy Verified 03/05/22 08:55 [facility] Disclaimer: The information contained in this section may have been updated after the patient was seen, as this information can be updated by other users. Medical History (Updated 08/08/22 @ 14:35 by Colin Sterling MD) Anxiety Hypertension Low back pain Obesity, Class III, BMI
--- NOTE | 2022-08-08 13:12 | PC.NURSE ---
PT TO CT AT THIS TIME
[2022-08-08 13:24] LABS: Chloride 98 mmol/L (98-107); Potassium 3.9 mmoL/L (3.5-5.1); Sodium 138 mmol/L (136-145)
[2022-08-08 13:27] LABS: Alanine Aminotransferase 52 U/L (12-78); Albumin Level 4.7 g/dl (3.5-5.0); Albumin/Globulin Ratio 1.6 (1.1-1.8); Alkaline Phosphatase 99 U/L (38-126); Anion Gap 11.9 mEq/L (5-15); Aspartate Amino Transferase 31 U/L (17-59); Bilirubin,Total 0.6 mg/dl (0.2-1.3); Blood Urea Nitrogen 25 mg/dl (9-20); Carbon Dioxide 32 mmol/L (22.0-30.0); Creatinine Clearance Estimated 93 mL/min (50-200); Estimated Glomerular Filt Rate 63 ml/min (>60); GFR (African American) 76 ML/MIN (>60); Globulin 2.9 g/dL (1.3-3.2); Glucose 91 mg/dl (74-100); Total Protein,Serum 7.6 g/dl (6.3-8.2)
[2022-08-08 13:37] LABS: Bacteria,Urine Trace /lpf; RBC,Urine Occasional #/hpf (0-3); WBC,Urine Occasional #/hpf (0-3)
[2022-08-08 13:45] VITALS: BP 140/70; PULSE 66; O2SAT 99
[2022-08-08 14:00] VITALS: BP 136/64; PULSE 64; O2SAT 99
--- NOTE | 2022-08-08 14:00 | PC.NURSE ---
rounded on pt, at bs, pt tolerated pain medicine
--- NOTE | 2022-08-08 14:30 | PC.NURSE ---
DR PARSONS AT BEDSIDE TO REEVALUATE PT
[2022-08-08 14:31] VITALS: BP 132/61; PULSE 64; O2SAT 99
[2022-08-08 15:34] VITALS: BP 155/74; PULSE 70; RESP 18; TEMP 36.3; O2SAT 96
== END 2022-08-08 15:37 | disposition home or self-care (01) ==
PROVIDERS: Emergency Provider Emergency Medicine; PCP Physician Assistant
DX: N23 Unspecified renal colic (principal); F41.9 Anxiety disorder, unspecified; I10 Essential (primary) hypertension; M54.50 Low back pain, unspecified; E66.9 Obesity, unspecified
CPT/HCPCS: 74176; 80053; 81001; 85025; 96361; 96374; 99285

== ENCOUNTER 2023-04-13 17:33 | Emergency (ER) | payer BC, SELFPAY ==
--- NOTE | 2023-04-13 17:36 | XR_ITS ---
PROCEDURE INFORMATION: Exam: XR Right Foot Exam date and time: 04/13/2023 5:32 PM Age: 37 years old Clinical indication: Injury or trauma; Other: Stepped on a nail; Puncture; Foot; Right; Without foreign body; Additional info: Stepped on 2 nails at first and second metatarsal TECHNIQUE: Imaging protocol: Radiologic exam of the right foot. Views: 3 or more views. COMPARISON: No relevant prior studies available. FINDINGS: Bones/joints: There is an old fracture of the 5th metatarsal base which appears nonunited. There is a hallux valgus deformity. No acute osseous injury. Soft tissues: There is some soft tissue swelling. No radiopaque foreign body is seen. IMPRESSION: No radiopaque foreign body or acute osseous abnormality..
[2023-04-13 17:45] VITALS: BP 143/86; PULSE 83; RESP 18; TEMP 36.8; O2SAT 98; BMI 40.2
[2023-04-13 17:47] VITALS: BMI 40.2
--- NOTE | 2023-04-13 18:01 | EXP.UTC ---
Discharge Plan Disposition Patient Disposition: Home, Self-Care Condition: Good Prescriptions Prescriptions: New amoxicillin-pot clavulanate 875-125 mg Tablet 1 tab PO Q12H 7 Days Qty: 14 0RF No Action (DME) pen needle, diabetic [Comfort EZ Pen [place]] 32 gauge x 3/16 needle See Rx Instructions .Route Qty: 50 5RF Rx Instructions: As directed hydrocodone-acetaminophen 5-325 mg tablet 1 tab PO QID PRN (Reason: pain) Qty: 10 0RF tamsulosin [Flomax] 0.4 mg capsule 0.4 mg PO DAILY Qty: 10 0RF Wegovy 2.4 mg/0.75 mL pen injector 2.4 mg SQ WEEKLY Qty: 9 1RF losartan 25 mg tablet See Rx Instructions .ROUTE .COMPLEX Qty: 30 0RF Dose Instruction: TAKE 1 TABLET BY MOUTH DAILY Rx Instructions: TAKE 1 TABLET BY MOUTH DAILY ketorolac 10 mg Tablet 10 mg PO Q6H PRN (Reason: Mild Pain (Scale Score 1-4)) Qty: 20 0RF ondansetron 4 mg tablet,disintegrating 4 mg PO TID PRN (Reason: nausea and vomiting) 1 Days Qty: 15 0RF buspirone 7.5 mg tablet 7.5 mg PO BID Saxenda 3 mg/0.5 mL (18 mg/3 mL) pen injector See Rx Instructions .ROUTE .COMPLEX Rx Instructions: INJECT SUBCUTANEOUS ONCE DAILY. WEEK 1 IS 0.6MG, WEEK 2 IS 1.2MG, WEEK 3 IS 1.8MG, WEEK 4 IS 2.4MG, THEN 3MG DAILY THEREAFTER Wegovy 0.25 mg/0.5 mL pen injector 0.25 mg SQ WEEKLY Rx Instructions: administer weeks 1 through 4 of therapy, then increase to 0.5 (call for next dose) Referrals Follow up/Referrals: Mariajose Moran PA [Primary Care Provider] - See instructions Activity Restrictions/Add. Instructions Additional Instructions/Restrictions: Keep wound clean and dry apply neosporin to puncture wounds Take oral antibiotics as prescribed Follow up with your [facility] Doctor if needed or any signs of infection including but not limited to redness, drainage or streaks Return if needed Straight to ER if any life threatening symptoms Clinical Impressions Clinical Impression: Puncture wound Instructions Patient Instructions: DI for Puncture Wound, Amoxicillin and Clavulanic Acid Discharge ED Provider: Rachel Crowell [facility] [place] HPI General Stated complaint: AO 04/13@0900 nail R Foot Mode of Arrival: Ambulatory Source of Information: Patient Limitations: No Limitations Time Seen by Provider: 04/13/23 18:01 Description of Symptoms (Recalled from Triage Doc. by RN): PATIENT REPORTS STEPPING ON 2 NAILS WITH RIGHT FOOT THIS MORNING. TDAP NEED HEENT Symptoms (Recalled from RN notes): No Resp Symptoms (Recalled from RN notes): No Skin Symptoms (Recalled from RN notes): Yes MS Symptoms (Recalled from RN notes): No Functional Status (Recalled from RN notes): WNL History of Present Illness Provider Complaint: Patient states that they was tearing down and barn this morning and there was a board with 2 nails sticking up and he stepped on it and the nails went into the bottom of his right foot State that he has some bruising and was worried about infection and needed a TDAp Related Data Home Medications Medication Instructions Recorded Confirmed buspirone 7.5 mg tablet 7.5 mg PO BID Anxiety 07/29/22 07/29/22 liraglutide (weight loss) 3 mg/0.5 See Rx Instructions .Route 07/29/22 07/29/22 mL (18 mg/3 mL) subcut pen .COMPLEX Weight loss injector (Hemal) semaglutide (weight loss) 0.25 0.25 mg SQ WEEKLY Weight loss 07/29/22 07/29/22 mg/0.5 mL subcutaneous pen injector (Levi) Previous Rx's Medication Instructions Recorded pen needle, diabetic 32 gauge x #50 ea 03/06/2209/26 (Comfort EZ Pen [place]) hydrocodone 5 mg-acetaminophen 325 1 tab PO QID PRN pain #10 tabs 07/29/22 mg tablet tamsulosin 0.4 mg capsule (Flomax) 0.4 mg PO DAILY #10 caps 07/29/22 ketorolac 10 mg tablet 10 mg PO Q6H PRN Mild Pain (Scale 08/08/22 Score 1-4) #20 tabs ondansetron 4 mg disintegrating 4 mg PO TID PRN nausea and 08/08/22 tablet vomiting 24 hours #15 tabs semaglutide (weight loss) 2.4 2.
[2023-04-13 18:24] VITALS: BP 143/86; PULSE 83; RESP 18; TEMP 36.8; O2SAT 98
== END 2023-04-13 18:49 | disposition home or self-care (01) ==
PROVIDERS: Emergency Provider Nurse Practitioner; PCP Physician Assistant
DX: S91.331A Puncture wound without foreign body, right foot, initial encounter (principal); W45.0XXA Nail entering through skin, initial encounter; F41.9 Anxiety disorder, unspecified; I10 Essential (primary) hypertension; E66.9 Obesity, unspecified; Z23 Encounter for immunization
CPT/HCPCS: 73630; 90715; 96372; 99204; 99212; G0463

== ENCOUNTER 2023-09-09 15:22 | Emergency (ER) | payer BC, SELFPAY ==
[2023-09-09 15:25] VITALS: BP 140/90; PULSE 116; RESP 18; TEMP 36.6; O2SAT 98; BMI 80.6
--- NOTE | 2023-09-09 15:44 | EXP.UTC ---
Discharge Plan Disposition Patient Disposition: Home, Self-Care Condition: Good Prescriptions Prescriptions: New etodolac 200 mg capsule 200 mg PO Q8H PRN (Reason: pain) Qty: 20 0RF methylprednisolone [Medrol (Maik)] 4 mg tablets,dose pack See Rx Instructions .Route .COMPLEX 6 Days Qty: 21 0RF Rx Instructions: taper pack; Referrals Follow up/Referrals: Mariajose Moran PA [Primary Care Provider] - See instructions Activity Restrictions/Add. Instructions Additional Instructions/Restrictions: Start oral Medrol Dose pack tomorrow *Etodolac chayo 8 hours with meal as needed for pain/inflammation *Not additional anti-inflammatory like Ibuprofen, motrin, aleve, advil with the above amount of Etodolac. You can still take Tylenol every 4 hours as needed if you need something else for pain Soft stretches and warm compresses may help *Keep this area active, no movement leads to more stiffness, However take it easy and avoid heavy lifting pushing or pulling *Follow up with you family doctor if no improvement for further treatment Clinical Impressions Clinical Impression: Low back pain with sciatica Qualifiers: Chronicity: unspecified Back pain laterality: right Sciatica laterality: sciatica of right side Qualified Code(s): M54.41 - Lumbago with sciatica, right side Instructions Patient Instructions: Sciatica, DI for Sciatica, Methylprednisolone Discharge ED Provider: Rachel Crowell [facility] [place] General Stated complaint: back pain Mode of Arrival: Ambulatory Source of Information: Patient Limitations: No Limitations Time Seen by Provider: 09/09/23 15:44 Description of Symptoms (Recalled from Triage Doc. by RN): PATIENT C/O RIGHT LOWER BACK PAIN THAT RADIATES DOWN LEG THAT STARTED YESTERDAY HEENT Symptoms (Recalled from RN notes): No Resp Symptoms (Recalled from RN notes): No Skin Symptoms (Recalled from RN notes): No MS Symptoms (Recalled from RN notes): Yes Functional Status (Recalled from RN notes): WNL History of Present Illness Provider Complaint: Patient states that he thinks he may be having sciatica pain States he is having pain in his right buttock area that goes down his leg States worse when he is sitting or laying Denies loss of control of bowel or bladder and denies known injury States he has been taking Ibuprofen and took some earlier today Related Data Previous Rx's Medication Instructions Recorded etodolac 200 mg capsule 200 mg PO Q8H PRN pain #20 caps 09/09/23 methylprednisolone 4 mg tablets in See Rx Instructions .Route 09/09/23 a dose pack (Medrol (Maik)) .COMPLEX 6 days #21 tabs Allergies Allergy/AdvReac Type Severity Reaction Status Date / Time No Known Allergies Allergy Verified 03/05/22 08:55 Worker's Comp Is this a Worker's Comp case?: No PFSH PFS Disclaimer: The information contained in this section may have been updated after the patient was seen, as this information can be updated by other users. Medical History (Updated 09/09/23 @ 15:56 by Rachel Crowell APRN) Anxiety Hypertension Low back pain Obesity, Class III, BMI 40-49.9 (morbid obesity) Social History Smoking Status: Never smoker alcohol intake: never current occupational status: employed Travel in the last 8 weeks: None household members: spouse housing: house current occupation: [employer] caffeine: Yes ROS Obtained: Yes All systems reviewed & no additional complaints except as documented and Yes Systems reviewed as appropriate & no additional complaints except as documented Constitutional Constitutional: Reports system reviewed and no additional complaints, except as documented and Reports as per HPI ENT Ears, Nose, Mouth, and Throat: Reports system reviewed and no additional complaints, except as documented and Reports as per HPI Cardiovascular Cardiovascular: Reports system reviewed and no additional complaints, except as documented and Reports as per HPI Respiratory Respiratory: Reports system reviewed and no additional complaints, except as documented and Reports as per HPI Gastrointestinal Gastrointestingal: Reports system reviewed and no additional complaints, except as documented and as per HPI Musculoskeletal Musculoskeletal: Reports system reviewed and no additional complaints, except as documented, Reports as per HPI and Reports back pain (pain in right buttock that goes down right leg) Physical Exam General General appearance: alert and in no apparent distress ENT ENT exam: Present mucous membranes moist Respiratory Respiratory exam: Present normal lung sounds bilaterally; Absent respiratory distress or wheezes Cardiovascular Cardiovascular exam: Present regular rate, normal rhythm and normal heart sounds Back Exam Back exam: Present sciatic notch tenderness (R) Back 1 view image: 1. reports pain in right buttock area that radiates down his leg worse with sitting or laying on that side Denies loss of control of bowel or bladder Neurological Exam Neurological exam: Present alert, oriented X3 and normal gait Medical Decision Making Jagdish Inquiry Pt receiving controlled substance: No Jagdish was queried for this patient: No Vital Signs: 09/09/23 15:25 Temperature 97.8 F Temperature Source Oral Pulse Rate [Left Brachial] 116 H Respiratory Rate 18 Blood Pressure [Left Arm] 140/90 Blood Pressure Mean [Left Arm] 106 Blood Pressure Source [Left Arm] Automatic Cuff Blood Pressure Position [Left Arm] Sitting 02 Sat by Pulse Oximetry 98 Oxygen Delivery Method Room Air Medical Decision Narrative: Patient reports has hx of low back pain States that pain is in right buttock and goes down right leg States has tried OTC Motrin and Tylenol and has seen Chiropractor several times for it with no relief Denies falling or any injury
[2023-09-09] MEDS: METHYLPREDNISOLONE SOD SUCC 125MG VIAL 125 MG IM (15:54)
[2023-09-09 15:55] VITALS: BP 140/90; PULSE 116; RESP 18; TEMP 36.6; O2SAT 98
== END 2023-09-09 16:26 | disposition home or self-care (01) ==
PROVIDERS: Emergency Provider Nurse Practitioner; PCP Physician Assistant
DX: M54.41 Lumbago with sciatica, right side (principal); I10 Essential (primary) hypertension; E66.01 Morbid (severe) obesity due to excess calories; Z68.42 Body mass index [BMI] 45.0-49.9, adult
CPT/HCPCS: 96372; 99212; 99214; G0463

== ENCOUNTER 2024-01-10 14:54 | Emergency (ER) | payer BC, SELFPAY ==
[2024-01-10 14:54] VITALS: BP 149/90; PULSE 86; RESP 18; TEMP 37.2; O2SAT 96; BMI 40.6
--- NOTE | 2024-01-10 14:55 | ECG_ITS ---
APPROVED REPORT Exam: Resting ECG HR:83 bpm ECG Measurements Heart Rate 83 AXES TX 159 P 24 QRSd 110 QRS 34 QT 341 T 4 QTc 381 Conclusion SINUS RHYTHM NORMAL ECG Electronically signed by : KAMRAN GIVENS, 01/12/2024 15:01:23
[2024-01-10 14:57] VITALS: BMI 38.5
--- NOTE | 2024-01-10 14:59 | PC.NURSE ---
DR GIVENS AT BEDSIDE
[2024-01-10 15:00] VITALS: BP 144/87; PULSE 80; O2SAT 98
--- NOTE | 2024-01-10 15:03 | CT_ITS ---
PROCEDURE INFORMATION: Exam: CT Head Without Contrast Exam date and time: 01/10/2024 3:14 PM Age: 38 years old Clinical indication: Syncope and collapse; Additional info: Syncope, severe NICHOLAS, blurry vision TECHNIQUE: Imaging protocol: Computed tomography of the head without contrast. Radiation optimization: All CT scans at this facility use at least one of these dose optimization techniques: automated exposure control; mA and/or kV adjustment per patient size (includes targeted exams where dose is matched to clinical indication); or iterative reconstruction. COMPARISON: No relevant prior studies available. FINDINGS: Brain: 9.7 millimeter low attenuation area in the right parietal lobe (series 3, image 29). It is nonspecific. This may represent normal perivascular space, vasculitis, demyelinating disease, lacunar infarction of unknown age. Recommend MRI for further evaluation if clinically indicated. No acute intracranial hemorrhage Cerebral ventricles: No ventriculomegaly. Paranasal sinuses: Visualized sinuses are unremarkable. No fluid levels. Mastoid air cells: Visualized mastoid air cells are well aerated. Bones: Unremarkable. No acute fracture. Soft tissues: Unremarkable. IMPRESSION: 9.7 millimeter low attenuation area in the right parietal lobe (series 3, image 29). It is nonspecific. This may represent normal perivascular space, vasculitis, demyelinating disease, lacunar infarction of unknown age. Recommend MRI for further evaluation if clinically indicated.
--- NOTE | 2024-01-10 15:10 | ED_ITS ---
Discharge Plan Disposition Patient Disposition: Home, Self-Care Chief Complaint: Syncope Prescriptions Prescriptions: No Action etodolac 200 mg capsule 200 mg PO Q8H PRN (Reason: pain) Qty: 20 0RF methylprednisolone [Medrol (Maik)] 4 mg tablets,dose pack See Rx Instructions .Route .COMPLEX 6 Days Qty: 21 0RF Rx Instructions: taper pack; Activity Restrictions/Add. Instructions Additional Instructions/Restrictions: Call your family doctor to establish care for this visit to the emergency department and schedule follow-up within 48 hours to ensure improvement. If you have any worsening of your condition or any other concerning signs or symptoms, return to the emergency department or your primary care doctor for further evaluation. Be sure to stay plenty hydrated. Clinical Impressions Clinical Impression: Vasovagal syncope Instructions Patient Instructions: DI for Syncope in Adults (Fainting), DI for Syncope in Children (Fainting) Discharge ED Provider: Holland Auguste General Adult HPI General Chief complaint: Syncope Stated complaint: SYNCOPE Time Seen by Provider: 01/10/24 15:07 Mode of Arrival: EMS Source of Information: Patient and EMS Limitations: No Limitations Description of Symptoms (Recalled from ER Triage Doc. by RN): PT BROUGHT VIA EMS FOR SYNCOPAL EPISODE. HAS BEEN WORKING OUTSIDE ALL MORNING. REPORTS BILATERAL ARM/HAND NUMBNESS, HEADACHE AND VISUAL DISTURBANCE SINCE SYNCOPAL EPISODE History of Present Illness HPI narrative: Please note that above description of symptoms, in this electronic medical record under categorization of recalled from ER triage doctor by RN are reflective of an initial nursing assessment, however, is not reflective of my full history and physical exam that was personally taken and clarified. Consequentially, this preceding description of symptoms, which may include the patient's categorized chief complaint in the EMR, do not reflect my personal clinical impression, and the ultimate description of history of present illness and patient stated complaints should be deferred to this section of the note. Unless stated otherwise or congruent with this section of the note, additional signs, symptoms, or incongruence should be interpreted as inaccurate with my clinical impression. Related Data Previous Rx's Medication Instructions Recorded etodolac 200 mg capsule 200 mg PO Q8H PRN pain #20 caps 09/09/23 methylprednisolone 4 mg tablets in See Rx Instructions .Route 09/09/23 a dose pack (Medrol (Maik)) .COMPLEX 6 days #21 tabs Allergies Allergy/AdvReac Type Severity Reaction Status Date / Time No Known Allergies Allergy Verified 03/05/22 08:55 [facility] Disclaimer: The information contained in this section may have been updated after the patient was seen, as this information can be updated by other users. Medical History (Updated 01/10/24 @ 16:14 by Holland Auguste MD) Obesity, Class III, BMI 40-49.9 (morbid obesity) Anxiety Hypertension Low back pain Social History Smoking Status: Never smoker alcohol intake: never current occupational status: employed Travel in the last 8 weeks: None household members: spouse housing: house current occupation: [employer] caffeine: Yes ROS Obtained: Yes All systems reviewed & no additional complaints except as documented Physical Exam General General appearance: alert and in no apparent distress Head Head exam: atraumatic and normocephalic Eye Eye exam: Present normal appearance, PERRL and EOMI ENT ENT exam: Present mucous membranes moist Neck Neck exam: Present normal inspection, full ROM and trachea midline Respiratory Respiratory exam: Absent respiratory distress, wheezes, stridor, accessory muscle use or prolonged expiratory phase Cardiovascular Cardiovascular exam: Present normal rhythm Abdominal Exam Abdominal exam: Present soft; Absent distention, tenderness, guarding, rebound or rigidity Extremities Exam Extremities exam: Absent edema Neurological Exam Neurological exam: Present alert, oriented X3, CN II-XII intact and normal gait; Absent motor sensory deficit Skin Skin exam: Present warm and dry; Absent diaphoresis or erythema Medical Decision Making Medical Records Medical records reviewed: Yes I reviewed the patient's medical records. Jagdish Inquiry Pt receiving controlled substance: No Jagdish was queried for this patient: No Vital Signs: 01/10/24 14:54 01/10/24 15:00 Temperature 99.0 F Temperature Source Oral Pulse Rate 80 Pulse Rate [Radial] 86 Respiratory Rate 18 Blood Pressure 144/87 H Blood Pressure [Right Arm] 149/90 H Blood Pressure Mean [Right Arm] 109 Blood Pressure Source [Right Arm] Automatic Cuff Blood Pressure Position [Right Arm] Sitting 02 Sat by Pulse Oximetry 96 98 Oxygen Delivery Method Room Air Room Air Lab Data Lab Results 01/10/24 14:52: WBC 10.2, RBC 5.47, Hgb 16.1, Hct 47.7, MCV 87.2, MCH 29.4, MCHC 33.8, RDW 13.7, Plt Count 184, MPV 7.6, Neut % (Auto) 80.0, Lymph % (Auto) 14.2, [place] % (Auto) 4.4, Eos % (Auto) 0.8, Baso % (Auto) 0.6, Neut # (Auto) 8.2 H, Lymph # (Auto) 1.4, [place] # (Auto) 0.5, Eos # (Auto) 0.1, Baso # (Auto) 0.1, Sodium 140, Potassium 3.8, Chloride 103, Carbon Dioxide 24, Anion Gap 16.8 H, B UN 24 H, Creatinine 1.10, Estimated Creat Clear 179, Estimated GFR 76, Est GFR ( Amer) 92, Glucose 99, Calcium 9.7, Magnesium 1.8, Total Bilirubin 0.7, AST 37, ALT 61, Alkaline Phosphatase 82, Troponin I < 0.01, Total Protein 7.4, Albumin 4.6, Globulin 2.8, Albumin/Globulin Ratio 1.6 01/10/24 14:52 01/10/24 14:52 Orders (Tests/Meds): ED MEDICATIONS Discontinued Medications Generic Name Dose Route Start Last Admin Trade Name Freq PRN Reason Stop Dose Admin Acetaminophen 1,000 mg 01/10/24 15:03 01/10/24 15:12 Acetaminophen 1,000mg/100ml Vial IV 01/10/24 15:04 1,000 mg ONCE ONE Administration Diphenhydramine HCl 25 mg 01/10/24 15:03 01/10/24 15:13 Diphenhydramine 50mg/Ml Vial IV 01/10/24 15:04 25 mg ONCE ONE Administration Lactated Ringer's 1,000 mls @ 999 mls/hr 01/10/24 14:57 01/10/24 15:13 Lactated Ringer's 1000 Ml Bag IV 01/10/24 15:57 999 mls/hr .Q1H1M ONE Administration Ketorolac Tromethamine 15 mg 01/10/24 15:03 01/10/24 15:12 Ketorolac 30mg/Ml Vial IV 01/10/24 15:04 15 mg ONCE ONE Administration Prochlorperazine Edisylate 10 mg 01/10/24 15:03 01/10/24 15:13 Prochlorperazine 10mg/2ml Vial IV 06/29/24 15:04 10 mg ONCE ONE Administration ORDERS Category Date Time Status CT head/brain wo con Stat Cat Scan 01/10/24 15:03 Completed CBC w/Auto Diff [Complete Blood Count Auto Diff] Stat Lab 01/10/24 14:52 Completed CMP [Comprehensive Metabolic Panel] Stat Lab 01/10/24 14:52 Completed Magnesium Stat Lab 01/10/24 14:52 Completed Trop I [Troponin I] Stat Lab 01/10/24 14:52 Completed Troponin I Q3H Lab 01/10/24 18:15 Ordered Troponin I Q3H Lab 01/10/24 21:15 Ordered 12-lead EKG Request [ECG Request] Stat Y 01/10/24 14:57 Ordered Medical Decision Narrative: Is a 38-year-old male history of hypertension that has been controlled with weight loss presenting with syncopal episode. Patient states that he was out mowing the grass in the heat, did not drink any water. Came inside the house and was yelling aggressively for 1 reason or another, he did not elaborate. States that while he was yelling, he began seeing dark spots, feeling lightheaded, hit the floor. Family heard him hit the floor in the kitchen. Kids went to check on him, before the kids could get to him, he was already up and walking out the door. Patient coming in now complaining of malaise, headache, blurry vision that has largely since completely resolved. History was obtained via conversation with patient. On arrival, patient hemodynamically stable, alert, oriented x4, appropriate, GCS 15, moving all extremities spontaneously, pupils equal and reactive to light. Full physical exam performed and significant for very well-appearing male in no acute distress. Abdomen soft, nontender, nondistended. Cardiac exam normal, no murmurs, gallops, rubs. Pulses equal and symmetric, no pulsatile abdominal mass. Neurologically intact clear cranial nerve, cerebellar, motor and sensory exam. Patient does have baseline exotropia. Speaking in complete sentences. Lungs are clear to auscultation anterior and posteriorly.. Differential includes vasovagal syncope, orthostatic syncope, dehydration, arrhythmia, ACS, ME, pneumothorax, among others. Patient placed on continuous cardiac monitoring and continuous pulse oximetry with initial blood pressure 149/90, pulse 86, oxygen saturation 96% on room air. Patient was given 1 L LR, Compazine, Benadryl, Toradol, acetaminophen migraine cocktail for symptomatic management and correction of underlying abnormalities. Workup independently interpreted and significant for nonactionable CBC or chemistry. Head CT without acute intracranial abnormality. See radiology read for full review of final results. Independent interpretation of EKG shows sinus rhythm 83 beats a minute without ST or T wave changes concerning for acute schema. ND 159, QRS 110, QTc 381. [place] normal.. Heart score 0. On reevaluation, patient feeling much better. Still denying any chest pain and no neurologic symptoms other than left hand tingling distal to wrist. Patient's history and workup most consistent with vasovagal syncope. Because patient at baseline without signs or symptoms of clinical decompensation, deemed appropriate for discharge. Results were relayed to patient who voiced understanding and were agreeable to outpatient management and follow up. I discussed my clinical impression with patient and answered all questions. At this time, the evidence for any other entities in the differential is insufficient to warrant any further testing or ED observation. This was explained as well. Advisory was given that persistent or worsening symptoms require further evaluation. I confirmed the understanding of this discussion. [employer] disclaimer Much of this encounter note is an electronic inspector final assembly conveyor line spoken language to printed text. Electronic inspector final assembly conveyor line of the spoken language may permit errors. Although I have reviewed the note, some errors may still exist. Critical Care Critical Care Time Critical Care Time: No
--- NOTE | 2024-01-10 15:11 | PC.NURSE ---
pt out of room with Rad for CT
[2024-01-10] MEDS: KETOROLAC 30MG/ML VIAL 15 MG IV (15:12)
[2024-01-10] MEDS: ACETAMINOPHEN 1,000MG/100ML VIAL 1000 MG IV (15:12)
[2024-01-10] MEDS: diphenhydrAMINE 50MG/ML VIAL 25 MG IV (15:13)
[2024-01-10] MEDS: LACTATED RINGERS 1000ML 1,000 ML 999 ML IV (15:13)
[2024-01-10] MEDS: PROCHLORPERAZINE 10MG/2ML VIAL 10 MG IV (15:13)
[2024-01-10 15:15] LABS: Basophils # 0.1 K/mm3 (0-0.2); Basophils % 0.6 % (0.1-2.0); Eosinophils # 0.1 K/mm3 (0.0-0.4); Eosinophils % 0.8 % (0.1-12.0); Hematocrit 47.7 % (42.0-52.0); Hemoglobin 16.1 g/dL (14.1-18.0); Lymphocytes # 1.4 K/mm3 (0.7-4.5); Lymphocytes % 14.2 % (10-50); Mean Corpuscular HGB Conc 33.8 g/dL (31.8-35.4); Mean Corpuscular Hemoglobin 29.4 pg (27.0-31.2); Mean Corpuscular Volume 87.2 fl (80-94); Mean Platelet Volume 7.6 fl (7.4-10.4); Monocytes # 0.5 K/mm3 (0.1-1.0); Monocytes % 4.4 % (1.7-9.3); Neutrophils # 8.2 K/mm3 (1.8-7.8); Platelet Count 184 K/mm3 (142-424); Red Blood Count 5.47 M/mm3 (4.60-6.20); Red Cell Distribution Width 13.7 % (11.5-17.5); White Blood Count 10.2 K/mm3 (4.8-10.8)
--- NOTE | 2024-01-10 15:18 | PC.NURSE ---
PT RETURNED FROM CT
--- NOTE | 2024-01-10 15:23 | PC.NURSE ---
pt back in room
[2024-01-10 15:27] LABS: Alanine Aminotransferase 61 U/L (12-78); Albumin Level 4.6 g/dl (3.5-5.0); Albumin/Globulin Ratio 1.6 (1.1-1.8); Alkaline Phosphatase 82 U/L (38-126); Anion Gap 16.8 mEq/L (5-15); Aspartate Amino Transferase 37 U/L (17-59); Bilirubin,Total 0.7 mg/dl (0.2-1.3); Blood Urea Nitrogen 24 mg/dl (9-20); Calcium 9.7 mg/dl (8.4-10.2); Carbon Dioxide 24 mmol/L (22.0-30.0); Chloride 103 mmol/L (98-107); Creatinine Clearance Estimated 179 mL/min (50-200); Estimated Glomerular Filt Rate 76 ml/min (>60); GFR (African American) 92 ML/MIN (>60); Globulin 2.8 g/dL (1.3-3.2); Glucose 99 mg/dl (74-100); Magnesium 1.8 mg/dl (1.6-2.3); Potassium 3.8 mmoL/L (3.5-5.1); Sodium 140 mmol/L (136-145); Total Protein,Serum 7.4 g/dl (6.3-8.2)
[2024-01-10 15:55] LABS: Troponin I < 0.01 ng/ml (0.00-0.034)
--- NOTE | 2024-01-10 16:04 | PC.NURSE ---
DR GIVENS AT BEDSIDE TO UPDATE PT AND FAMILY
[2024-01-10 16:15] VITALS: BP 117/65; PULSE 71; RESP 16; TEMP 37.2; O2SAT 100
== END 2024-01-10 16:20 | disposition home or self-care (01) ==
PROVIDERS: Emergency Provider Emergency Medicine
DX: R55 Syncope and collapse (principal); R20.0 Anesthesia of skin; R51.9 Headache, unspecified; H53.8 Other visual disturbances; I10 Essential (primary) hypertension
CPT/HCPCS: 70450; 80053; 83735; 84484; 85025; 93005; 96361; 96374; 96375; 99285; J0131; J1885; J7120

== ENCOUNTER 2024-12-27 11:32 | Outpatient (CLI) | payer BC, SELFPAY ==
--- NOTE | 2024-12-27 11:36 | XR_ITS ---
FINAL REPORT CLINICAL HISTORY: Right hand pain COMPARISON: None FINDINGS: RIGHT HAND Three views demonstrate no acute fracture or dislocation. The visualized joint spaces are normally aligned. There is soft tissue edema over the dorsum of the hand. IMPRESSION: Soft tissue edema without acute bony abnormality. Reviewed, Interpreted and Dictated by Agusto Coates MD Transcribed by Raquel Hutchins Authenticated and [facility]
--- NOTE | 2024-12-27 11:36 | XR_ITS ---
FINAL REPORT CLINICAL HISTORY: Right hand pain COMPARISON: None FINDINGS: RIGHT WRIST Three views demonstrate no acute fracture or dislocation. There is ulnar negative variance measuring 3 mm. The visualized joint spaces are normally aligned. The soft tissues are unremarkable. IMPRESSION: No acute bony abnormality. Reviewed, Interpreted and Dictated by Agusto Coates MD Transcribed by Raquel Hutchins Authenticated and [facility]
--- OUTSIDE RECORDS SUMMARY | 2024-12-27 11:36 | XMS_ITS | Data Portability ---
Author Organization [employer] [place] [facility] Address [address] [place] [address] Assessment No assessment recorded. Plan of Treatment Reminders Order Date Submit Date Provider Last Modified By Organization Details Last Modified Time Details Appointments None recorded. Lab CMP, serum or plasma 2024 025 CRAIG [facility] ([facility]), [address] [place], [address], 12:09:26 CBC w/ auto diff 2024 025 CRAIG [facility] ([facility]), [address] [place], [address], 12:09:26 vitamin D, 25-hydroxy, total, serum 2024 025 CRAIG [facility] ([facility]), [address] [place], [address], 12:09:29 TSH, ultra-sensi tive, serum 2024 025 CRAIG [facility] ([facility]), [address] [place], [address], 5 12:09:28 cobalamin and folate panel, serum 2024 025 CRAIG [facility] ([facility]), [address] [place], [address], 5 12:09:27 iron + TIBC + ferritin, serum 2024 025 ISLE LA MOTTE [facility] [address] [place], [address], 5 12:09:25 rf (rheumatoid factor), serum 2024 025 [facility] ([facility]), [address] [place], [address], 5 12:09:29 C reactive protein, QN, serum or plasma 2024 025 [facility] ([facility]), [address] [place], [address], 5 12:09:32 ESR (erythrocyt e sedimentati on rate), blood 2024 025 [facility] ([facility]), [address] [place], [address], 5 12:09:31 MINDY (antinuclea r antibodies) screen, serum 2024 025 [facility] ([facility]), [address] [place], [address], 5 12:09:31 ccp (cyclic citrullinat ed peptide) iga+igg, serum 2024 025 [facility] ([facility]), [address] [place], [address], 5 12:09:30 lipid panel, serum 2024 025 [facility] ([facility]), [address] [place], [address], 5 12:09:27 Hepatitis C IgG Ab, qual, serum 2024 025 [facility] ([facility]), [address] [place], [address], 5 12:09:28 HIV 1 + 2, meaningful use set 2024 025 [facility] ([facility]), [address], [place], [address], 12:09:30 Referral None recorded. Procedures None recorded. Surgeries None recorded. Imaging electromyog iris + nerve conduction study - first available appt 2024 025 CRAIG [facility], [address], [address], [place], [address], 09:45:16 Medication Orders Zepbound 15 mg/0.5 mL subcutaneou s pen injector 2024 025 ISLE LA MOTTE [id number], [address] [facility] [address] , [place], [place], [id number], 15:27:07 Zepbound 7.5 mg/0.5 mL subcutaneou s pen injector 2023 025 ISLE LA MOTTE [facility] #[id number], [address] [facility] [address] , [place], [place], [id number], 5 16:14:42 buspirone 7.5 mg tablet 2023 024 ISLE LA MOTTE [facility] #[id number], [address] [facility] [address] , [place], [place], [id number], 16:54:47 Patient TargetsNo targets recorded. Patient Instructions Encounter Date Encounter Id Patient Instructions Last Modified By Organization Details Last Modified Time 04/26/2024 [id number] When You Want to Lose Weight: Care Instructions [email or web address] Not available 04/26/2024 16:10:52 10/19/2024 [id number] body mass index: care instructions [email or web address] Not available 10/21/2024 15:27:01 learning about healthy weight [email or web address] Not available 10/21/2024 15:27:01 Reason for Referral None Reported. Results Created Date Observation Date Name Description Value Unit Range Abnormal Flag Note LastModifiedBy Organization Detail LastModifiedTime 10/20/1910/21/2024 FE+TI BC+FE R iron bind.cap.(TI BC) 316 ug/dL 250-45 0 normal Not Available [facility] ([facility]) [address] [place], [address], 10/25/2024 12:09:25 10/20/19 25 10/21/2024 FE+TI BC+FE R UIBC 249 ug/dL 111-34 3 normal Not Available [facility] ([facility]) [address] [place], [address], 10/25/2024 12:09:25 10/20/19 25 10/21/2024 FE+TI BC+FE R iron 67 ug/dL 38-169 normal Not Available [facility] ([facility]) [address] [place], [address], 10/25/2024 12:09:25 10/20/1910/21/2024 FE+TI BC+FE R iron saturation 21 % 15-55 normal Not Available [facility] ([facility]) [address] [place], [address], 10/25/2024 12:09:25 10/20/19 25 10/21/2024 FE+TI BC+FE R ferritin 321 NG/mL 30-400 normal Not Available [facility] ([facility]) [address] [place], [address], 10/25/2024 12:09:25 10/20/1910/21/2024 CBC WITH DIFFE RENTI AL/PL ATELE T WBC 8.8 x10e3 /uL 3.4-10 .8 normal Not Available [facility] ([facility]) [address] [place], [address], 10/25/2024 12:09:26 10/20/19 10/21/2024 CBC WITH DIFFE RENTI AL/PL ATELE T RBC 5.48 x10e6 /uL 4.14-5 .80 normal Not Available [facility] ([facility]) [address] [place], [address], 10/25/2024 12:09:26 10/20/19 25 10/21/2024 CBC WITH DIFFE RENTI AL/PL ATELE T hemoglobin 16.2 g/dL 13.0-1 7.7 normal Not Available [facility] ([facility]) [address] [place], [address], 10/25/2024 12:09:26 10/20/1910/21/2024 CBC WITH DIFFE RENTI AL/PL ATELE T hematocrit 49.4 % 37.5-5 1.0 normal Not Available [facility] ([facility]) [address] [place], [address], 10/25/2024 12:09:26 10/20/1910/21/2024 CBC WITH DIFFE RENTI AL/PL ATELE T MCV 90 fL 79-97 normal Not Available [facility] ([facility]) [address] [place], [address], 10/25/2024 12:09:26 10/20/1910/21/2024 CBC WITH DIFFE RENTI AL/PL ATELE T MCH 29.6 pg 26.6-3 3.0 normal Not Available [facility] ([facility]) [address] [place], [address], 10/25/2024 12:09:26 10/20/1910/21/2024 CBC WITH DIFFE RENTI AL/PL ATELE T MCHC 32.8 g/dL 31.5-3 5.7 normal Not Available [facility] ([facility]) [address] [place], [address], 10/25/2024 12:09:10/20/19 25 10/21/2024 CBC WITH DIFFE RENTI AL/PL ATELE T RDW 13.5 % 11.6-1 5.4 Not Available [facility] ([facility]) [address] [facility], [place], [address], 10/25/2024 12:09:26 10/20/19 25 10/21/2024 CBC WITH DIFFE RENTI AL/PL ATELE T platelets 195 x10e3 /uL 150-45 0 normal Not Available [facility] ([facility]) [address] [facility], [place], [address], 10/25/2024 12:09:26 10/20/19 25 10/21/2024 CBC WITH DIFFE RENTI AL/PL ATELE T neutrophils 66 % not estab. normal Not Available [facility] ([facility]) [address] [facility], [place], [address], 10/25/2024 12:09:26 10/20/19 25 10/21/2024 CBC WITH DIFFE RENTI AL/PL ATELE T lymphs 23 % not estab. normal Not Available [facility] ([facility]) [address] [facility], [place], [address], 10/25/2024 12:09:26 10/20/19 25 10/21/2024 CBC WITH DIFFE RENTI AL/PL ATELE T monocytes 9 % not estab. normal Not Available [facility] ([facility]) [address] [facility], [place], [address], 10/25/2024 12:09:26 10/20/19 25 10/21/2024 CBC WITH DIFFE RENTI AL/PL ATELE T eos 1 % not estab. normal Not Available [facility] ([facility]) [address] [facility], [place], [address], 10/25/2024 12:09:26 10/20/19 25 10/21/2024 CBC WITH DIFFE RENTI AL/PL ATELE T basos 1 % not estab. normal Not Available [facility] ([facility]) [address] [facility], [place], [address], 10/25/2024 12:09:26 10/20/19 25 10/21/2024 CBC WITH DIFFE RENTI AL/PL ATELE T immature cells [employer]PERVISOR Not Available [facility] ([facility]) [address] [facility], [place], [address], 10/25/2024 12:09:26 10/20/19 25 10/21/2024 CBC WITH DIFFE RENTI AL/PL ATELE T neutrophils (absolute) 5.8 x10e3 /uL 1.4-7. 0 normal Not Available [facility] ([facility]) [address] [facility], [place], [address], 10/25/2024 12:09:26 10/20/19 25 10/21/2024 CBC WITH DIFFE RENTI AL/PL ATELE T lymphs (absolute) 2.1 x10e3 /uL 0.7-3. 1 normal Not Available [facility] ([facility]) [address] [place], [address], 10/25/2024 12:09:26 10/20/19 25 10/21/2024 CBC WITH DIFFE RENTI AL/PL ATELE T monocytes(ab solute) 0.8 x10e3 /uL 0.1-0. 9 normal Not Available [facility] ([facility]) [address] [place], [address], 10/25/2024 12:09:26 10/20/19 25 10/21/2024 CBC WITH DIFFE RENTI AL/PL ATELE T eos (absolute) 0.1 x10e3 /uL 0.0-0. 4 normal Not Available [facility] ([facility]) [address] [facility], [place], [address], 10/25/2024 12:09:26 10/20/19 25 10/21/2024 CBC WITH DIFFE RENTI AL/PL ATELE T baso (absolute) 0.1 x10e3 /uL 0.0-0. 2 normal Not Available [facility] ([facility]) [address] [facility], [place], [address], 10/25/2024 12:09:26 10/20/19 25 10/21/2024 CBC WITH DIFFE RENTI AL/PL ATELE T immature granulocytes 0 % not estab. Not Available [facility] ([facility]) [address] [facility], [place], [address], 10/25/2024 12:09:26 10/20/19 25 10/21/2024 CBC WITH DIFFE RENTI AL/PL ATELE T immature grans (abs) 0.0 x10e3 /uL 0.0-0. 1 Not Available [facility] ([facility]) [address] [facility], [place], [address], 10/25/2024 12:09:26 10/20/19 25 10/21/2024 CBC WITH DIFFE RENTI AL/PL ATELE T NRBC [employer]PER[employer] Not Available [facility] ([facility]) [address] [place], [address], 10/25/2024 12:09:26 10/20/19 25 10/21/2024 CBC WITH DIFFE RENTI AL/PL ATELE T hematology comments: [employer]PER[employer]OR Not Available [facility] ([facility]) [address] [place], [address], 10/25/2024 12:09:26 10/20/19 25 10/21/2024 COMP. METAB OLIC PANEL (14) glucose 88 mg/dL 70-99 normal Not Available [facility] ([facility]) [address] [place], [address], 10/25/2024 12:09:26 10/20/19 25 10/21/2024 COMP. METAB OLIC PANEL (14) BUN 17 mg/dL 6-20 normal Not Available [facility] ([facility]) [address] [place], [address], 10/25/2024 12:09:26 10/20/19 25 10/21/2024 COMP. METAB OLIC PANEL (14) creatinine 0.86 mg/dL 0.76-1 .27 normal Not Available [facility] ([facility]) [address] [place], [address], 10/25/2024 12:09:26 10/20/19 25 10/21/2024 COMP. METAB OLIC PANEL (14) eGFR 115 mL/mi n/1.7 3 >59 normal Not Available [facility] ([facility]) [address] [facility] [place], [address], 10/25/2024 12:09:26 10/20/19 25 10/21/2024 COMP. METAB OLIC PANEL (14) BUN/creatini ne ratio 20 9-20 normal Not Available [facility] ([facility]) [address] [facility] [place], [address], 10/25/2024 12:09:26 10/20/19 25 10/21/2024 COMP. METAB OLIC PANEL (14) sodium 138 mmol/ L 134-14 4 normal Not Available [facility] ([facility]) [address] [facility] [place], [address], 10/25/2024 12:09:26 10/20/19 25 10/21/2024 COMP. METAB OLIC PANEL (14) potassium 4.0 mmol/ L 3.5-5. 2 normal Not Available [facility] ([facility]) [address] [facility] [place], [address], 10/25/2024 12:09:26 10/20/19 25 10/21/2024 COMP. METAB OLIC PANEL (14) chloride 103 mmol/ L 96-106 normal Not Available [facility] ([facility]) [address] [facility] [place], [address], 10/25/2024 12:09:26 10/20/19 25 10/21/2024 COMP. METAB OLIC PANEL (14) carbon dioxide, total 21 mmol/ L 20-29 normal Not Available [facility] ([facility]) [address] [place], [address], 10/25/2024 12:09:26 10/20/19 25 10/21/2024 COMP. METAB OLIC PANEL (14) calcium 9.6 mg/dL 8.7-10 .2 normal Not Available [facility] ([facility] [address] [facility] [place], [address], 10/25/2024 12:09:26 10/20/19 25 10/21/2024 COMP. METAB OLIC PANEL (14) protein, total 6.7 g/dL 6.0-8. 5 normal Not Available [facility] ([facility] [address] [facility] [place], [address], 10/25/2024 12:09:26 10/20/19 25 10/21/2024 COMP. METAB OLIC PANEL (14) albumin 4.6 g/dL 4.1-5. 1 normal Not Available [facility] ([facility]) [address] [facility] [place], [address], 10/25/2024 12:09:26 10/20/19 25 10/21/2024 COMP. METAB OLIC PANEL (14) globulin, total 2.1 g/dL 1.5-4. 5 Not Available [facility] ([facility]) [address] [facility] [place], [address], 10/25/2024 12:09:26 10/20/19 25 10/21/2024 COMP. METAB OLIC PANEL (14) bilirubin, total 0.3 mg/dL 0.0-1. 2 normal Not Available [facility] ([facility]) [address] [facility] [place], [address], 10/25/2024 12:09:26 10/20/19 25 10/21/2024 COMP. METAB OLIC PANEL (14) alkaline phosphatase 94 IU/L 44-121 normal Not Available [facility] ([facility]) [address] [place], [address], 10/25/2024 12:09:26 10/20/19 25 10/21/2024 COMP. METAB OLIC PANEL (14) AST (SGOT) 28 IU/L 0-40 normal Not Available [facility] ([facility]) [address] [place], [address], 10/25/2024 12:09:26 10/20/19 25 10/21/2024 COMP. METAB OLIC PANEL (14) ALT (SGPT) 47 IU/L 0-44 above high normal Not Available [facility] ([facility]) [address] [place], [address], 10/25/2024 12:09:26 10/20/19 25 10/21/2024 LIPID PANEL cholesterol, total 215 mg/dL 100-19 9 above high normal Not Available [facility] ([facility]) [address] [place], [address], 10/25/2024 12:09:27 10/20/19 25 10/21/2024 LIPID PANEL triglyceride s 305 mg/dL 0-149 above high normal Not Available [facility] ([facility]) [address] [place], [address], 10/25/2024 12:09:27 10/20/19 25 10/21/2024 LIPID PANEL HDL cholesterol 41 mg/dL >39 normal Not Available [facility] ([facility]) [address] [place], [address], 10/25/2024 12:09:27 10/20/19 25 10/21/2024 LIPID PANEL VLDL cholesterol tirso 54 mg/dL 5-40 above high normal Not Available [facility] ([facility]) [address] [facility], [place], [address], 10/25/2024 12:09:27 10/20/19 25 10/21/2024 LIPID PANEL LDL chol calc ([facility]) 120 mg/dL 0-99 above high normal Not Available [facility] ([facility]) [address] [facility] [place], [address], 10/25/2024 12:09:27 10/20/19 25 10/21/2024 LIPID PANEL LDL calc comment: [employer]PER[employer]OR Not Available [facility] ([facility]) [address] [facility], [place], [address], 10/25/2024 12:09:27 10/20/19 25 10/21/2024 VITAM IN B12 AND FOLAT E vitamin B12 390 pg/mL 232-12 45 normal Not Available [facility] ([facility]) [address] [facility], [place], [address], 10/25/2024 12:09:27 10/20/19 25 10/21/2024 VITAM IN B12 AND FOLAT E folate (folic acid), serum 8.7 NG/mL >3.0 normal A serum folat e demetra ntrat ion of less than 3.1 ng/mL is consi dered to repre sent clini tirso defic iency . Not Available [facility] ([facility]) [address] [facility], [place], [address], 10/25/2024 12:09:27 10/20/19 25 10/21/2024 HCV ANTIB OSCAR CASCA DE(PC R/GEN O) HCV Ab Non Reacti ve non reacti ve Not Available [facility] ([facility]) [address] [facility], [place], [address], 10/25/2024 12:09:28 10/20/19 25 10/21/2024 HCV ANTIB OSCAR CASCA DE(PC R/GEN O) interpretati on: Commen t Not infec esteban with HCV unles s early or acute infec tion is suspe cted (whic h may be delay ed in an immun ocomp romis ed indiv idual ), or other evide nce exist s to indic ate HCV infec tion. Not Available [facility] ([facility]) [address] [facility], [place], [address], 10/25/2024 12:09:28 10/20/1910/21/2024 TSH TSH 1.650 uIU/m L 0.450- 4.500 normal Not Available [facility] ([facility]) [address] [facility], [place], [address], 10/25/2024 12:09:28 10/20/1910/21/2024 RHEUM ATOID FACTO R (RF) rheumatoid factor (rf) 10.0 IU/mL <14.0 normal Not Available [facility] ([facility]) [address] [facility], [place], [address], 10/25/2024 12:09:29 10/20/1910/21/2024 VITAM IN D, 25-HY DROXY vitamin D, 25-hydroxy 18.7 NG/mL 30.0-1 00.0 below low normal Vitam in D defic iency has been defin ed by the Insti tute of Medic ine and an Endoc rine Socie ty pract ice guide line as a level of serum 25-OH vitam in D less than 20 ng/mL (1,2) . The Endoc rine Socie ty went on to furth er defin e vitam in D insuf ficie ncy as a level betwe en 21 and 29 ng/mL (2). 1. IOM (Inst itute of Medic ine). 2009. Dieta ry refer ence yue es for calci um and D. Alyson perdue [place]: The Natio nal [facility] Press . 2. Adela bennett MF, Leonidas ey [place], Bisch off-F errar i NICHOLAS, et al. Evalu ation , treat ment, and preve ntion of vitam in D defic iency : an Endoc rine Socie ty clini tirso pract ice guide line. JCEM. 2010; 96(7) :1911 -30. Not Available [facility] ([facility]) [address] [place], [address], 10/25/2024 12:09:29 10/20/19 25 10/21/2024 HIV AB/P2 4 AG WITH REFLE X HIV Ab/P24 Ag screen Non Reacti ve non reacti ve HIV-1 /HIV- 2 antib odies and HIV-1 p24 antig en were NOT detec esteban. There is no labor atory evide nce of HIV infec tion. HIV Negat maryanne Not Available [facility] ([facility]) [address] [facility], [place], [address], 10/25/2024 12:09:30 10/20/19 25 10/21/2024 ANTI- CCP AB, IGG/I GA anti-ccp Ab, IgG/IgA 4 units 0-19 Negat maryanne <20 Weak posit maryanne 20 - 39 Moder ate posit maryanne 40 - 59 Stron g posit maryanne >59 Not Available [facility] ([facility]) [address] [facility], [place], [address], 10/25/2024 12:09:30 10/20/19 25 10/21/2024 ANTIN UCLEA R AB MULTI PLEX RFX 9 MINDY direct Negati ve negati ve Not Available [facility] ([facility]) [address] [place], [address], 10/25/2024 12:09:31 10/20/19 25 10/25/2024 SEDIM ENTAT ION RATE- WESTE RGREN sedimentatio n rate-westerg tom COMMEN T mm/HR Test not perfo rmed due to the age of this speci men. CONTA CTED MARIAJOSE STONE ON 10-25 Not Available [facility] ([facility]) [address] [place], [address], 10/25/2024 12:09:31 10/20/19 25 10/21/2024 C-NATIVIDAD CTIVE PROTE IN, QUANT C-reactive protein, quant 4 mg/L 0-10 normal Not Available [facility] ([facility]) [address] [facility], [place], [address], 10/25/2024 12:09:32 10/20/19 25 10/25/2024 SPECI MEN STATU S REPOR T specimen status report COMMEN T Test not perfo rmed due to the age of this speci men. TEST: [id number] Sedim entat ion Rate- Weste rgren CONTA CTED MARIAJOSE MORAN ON 10-25 Not Available [facility] ([facility]) [address] [facility], [place], [address], 10/25/2024 12:09:32 12/17/19 25 12/14/2024 elect romyo gram + nerve condu ction study No observ ation record ed. [facility] [address], [place], [address], 12/16/2024 09:59:19 Result Notes None recorded. Problems Name Problem SNOMED Code Status Onset Date Resolution Date Notes Provider Name and Address Organization Details Recorded Time Generalized anxiety disorder 45714757 Active 2023 MEGHAN Antoine [address] [place] [address], [phone], [employer] 10:49:29 Obesity 359109330 Active 2023 MEGHAN Antoine [address] [place] [address], [address] 8, [employer] 10:49:27 Hyperlipidemia 11365203 Active 2024 MEGHAN Antoine [address] [place] [address], [address] 8, [employer] 10:08:51 Vitamin D deficiency 47651069 Active 2024 MEGHAN Antoine [address] [place] [address], [phone], [employer] [facility] 10:09:08 Problem Notes None recorded. Procedures Surgical History Date Name Laterality Status Provider Name and Address Organization Details Recorded Time Appendectomy completed [facility] [employer] 04/26/2024 15:32:28 Colposcopy completed [facility] [employer] 04/26/2024 15:32:28 Eye Surgery completed [facility] [employer] 04/26/2024 15:32:28 Tonsillectomy completed [facility] [employer] 04/26/2024 15:32:28 Vasectomy completed [facility] [employer] [facility] [employer] 04/26/2024 15:32:28 Imaging Results None recorded. Procedure Notes None recorded. Medical Equipment None Reported. Allergies No known drug allergies Medications Name Sig Start Date Stop Date Status Note LastModified by Organization Details LastModified Time etodolac 200 mg capsule TAKE 1 CAPSULE BY MOUTH EVERY 8 HOURS NEEDED FOR PAIN 04/26 completed Not Available Not Available Not Available buspirone 7.5 mg tablet Take 1 tablet twice a day by oral route as directed for 30 days, for anxiety. active Not Available Not Available No t Available ergocalcife rol (vitamin D2) 1,250 mcg (50,000 unit) capsule Take 1 capsule every week by oral route for 90 days. 2024 active Not Available Not Available Not Avai lable methylpredn isolone 4 mg tablets in a dose pack TAKE DIRECTED BY DOCTOR 04/26 completed Not Available Not Available Not Available Lipitor 10 mg tablet Take 1 tablet every day by oral route at bedtime for 90 days. 2024 active Not Available Not Available Not Avai lable cholecalcif frances (vitamin D3) 50 mcg (2,000 unit) capsule Take 1 capsule every day by oral route for 90 days, for Vitamin D deficienc y. 2024 active Not Available Not Available Not Avai lable Saxenda 3 mg/0.5 mL (18 mg/3 mL) subcutaneou s pen injector active Not Available Not Available Not Available Wegovy 2.4 mg/0.75 mL subcutaneou s pen injector ADMINISTE R 2.4 MG UNDER THE SKIN WEEKLY. MAKE APPOINTME NT FOR FUTURE REFILLS. 04/26 completed Not Available Not Available Not Available Zepbound 10 mg/0.5 mL subcutaneou s pen injector 10/19 completed Not Available Not Available Not Available Zepbound 5 mg/0.5 mL subcutaneou s pen injector 10/19 completed Not Available Not Available Not Available Zepbound 2.5 mg/0.5 mL subcutaneou s pen injector ADMINISTE R 2.5 MG UNDER THE SKIN WEEKLY FOR 4 WEEKS 04/26 completed Not Available Not Available Not Available Zepbound 15 mg/0.5 mL subcutaneou s pen injector Inject 0.5 mL every week by subcutane ous route for 28 days. 2024 active Not Available Not Available Not Avai lable Zepbound 12.5 mg/0.5 mL subcutaneou s pen injector Inject 0.5 mL every week by subcutane ous route for 28 days. active Not Available Not Available No t Available Zepbound 7.5 mg/0.5 mL subcutaneou s pen injector 10/19 completed Not Available Not Available Not Available Vitals Date Recorded Body height Body mass index (BMI) Body weight Oxygen saturation Oxygen saturation in Arterial blood by Pulse oximetry Heart rate Body temperature Systolic blood pressure Diastolic blood pressure Provider Name and Address Organization Details Last Updated DateTime 5 195.58 cm 37.9 kg/m2 331800. 56 g 95 % 95 % 82 /min 98.2 [degF] 128 mm[Hg] 86 mm[Hg] Pax[employer]. 5 16:23:59 Date Recorded Body weight Body mass index (BMI) Body height Oxygen saturation Oxygen saturation in Arterial blood by Pulse oximetry Heart rate Systolic blood pressure Diastolic blood pressure Provider Name and Address Organization Details Last Updated DateTime 4 849958. 71 g 38 kg/m2 195.58 cm 95 % 95 % 85 /min 135 mm[Hg] 87 mm[Hg] Pax[employer]. 4 15:32:47 Social History Question Answer Notes LastModified by Organizat ion Details LastModified Time Tobacco Smoking Status Never Smoker Marie perrin [facility] [employer] 04/26/2024 15:32:28 Do You Have An Advance Directive? No Information n ot available 04/26/2024 Is Your Home Air Conditioned? Yes Information not available 04/26/2024 Do You Wear A Helmet When Biking? Yes Information not available 04/26/2024 Are You Blind Or Do You Have Difficulty Seeing? No Information n ot available 04/26/2024 What Is Your Level Of Caffeine Consumption? Moderate Information not available 04/26/2024 Are You A Caregiver? No Information not available 04/26/2024 What Type Of Business Planning Analyst Do You Use? None Information not available 04/26/2024 In The 14 Days Before Symptom Onset, Have You Had Close Contact With A Laboratory-confirm ed COVID-19 While That Case Was Ill? No Information n ot available 04/26/2024 In The 14 Days Before Symptom Onset, Have You Had Close Contact With A Person Who Is Under Investigation For COVID-19 While That Person Was Ill? No Information not available 04/26/2024 Have You Been To An Area Known To Be High Risk For COVID-19? No Information not available 04/26/2024 Are You Deaf Or Do You Have Serious Difficulty Hearing? No Information not available 04/26/2024 What Type Of Diet Are You Following? REGULAR Information n ot available 04/26/2024 Who Is Your Employer? [employer] Information not available 04/26/2024 Have There Been Any Changes To Your Family Or Social Situation? No Information no t available 04/26/2024 Are There Any Guns Present In Your Home? No Information not available 04/26/2024 Which Of Your Hands Is Dominant? Right Information n ot available 04/26/2024 Do You Have A Medical Power Of Hair Spring Cutter? No Information not available 04/26/2024 What Was The Date Of Your Most Recent Tobacco Screening? 10/19/2024 Information not available 10/19/2024 Have You Ever Been Counseled For Unhealthy Alcohol Use? No Information not available 04/26/2024 Do You Have Any Pets? Yes Information not available 04/26/2024 Do You Use Protection During Sex? No Information not available 04/26/2024 What Is Your Relationship Status? Information not available 04/26/2024 Have You Repeated Any Grades? No Information not available 04/26/2024 Do You Use Your Seat Belt Or Car Seat Routinely? Yes Information not available 04/26/2024 Are You Sexually Active? Yes Information not available 04/26/2024 Do You Have Any Siblings? Yes Information not available 04/26/2024 Do You Have Smoke And Carbon Monoxide Detectors In Your Home? Yes Information not available 04/26/2024 Are You Passively Exposed To Smoke? No Information no t available 04/26/2024 Are There Any Smokers In Your House? No Information not available 04/26/2024 Do You Use Sunscreen Routinely? No Information not available 04/26/2024 Has Tobacco Cessation Counseling Been Provided? No Information not available 04/26/2024 Have You Recently Traveled Abroad? No Information not available 04/26/2024 Do You Have Difficulty Walking Or Climbing Stairs? No Information not available 04/26/2024 Are You Currently In School? No Information not available 10/19/2024 Do You Have Any Dietary Restrictions? No Information not available 04/26/2024 Sex: Male Functional Status Question Answer Note LastModified by Organizat ion Details LastModified Time Do you use any illicit or recreational drugs? No Information not available 04/26/2024 Do you or have you ever used any other forms of tobacco or nicotine? No Information not available 04/26/2024 What is your level of alcohol consumption? Occasional Information not available 04/26/2024 Are you currently employed? Yes Information not available 04/26/2024 Do you have transportation difficulties? No Information not available 04/26/2024 Are you able to walk? YESWOREST Information not available 04/26/2024 Do you have difficulty doing errands alone? No Information not available 04/26/2024 Are you able to care for yourself? Yes Information n ot available 04/26/2024 Do you have difficulty dressing or bathing? No Information not available 04/26/2024 What is your exercise level? Occasional Information not available 04/26/2024 Mental Status Question Answer Note LastModified by Organization D etails LastModified Time Do you have difficulty concentrating, remembering or making decisions? No Information no t available 04/26/2024 Are you or have you been involved with bullying? No Information not available 04/26/2024 Family History Relationship Description Onset Age of this Age Resolved Age Notes LastModified by Organization Details LastModified Time Paternal Grandmother Heart disease Not available 2023 15:34:41 Paternal Grandmother Hypertensive disorder Not available 2023 15:35:03 Paternal Grandmother Diabetes mellitus Not available 2023 15:35:29 Maternal Grandmother Heart disease Not available 2023 15:34:47 Maternal Grandmother Hypertensive disorder Not available 2023 15:34:58 Maternal Grandmother Diabetes mellitus Not available 2023 15:35:21 Maternal Grandfather Diabetes mellitus Not available 2023 15:35:16 Medical History Condition Response Coronary Artery Disease N Other N Gout N Kidney Stones N Blood Diseases N Hyperthyroidism N Blood Transfusion N Breast Cancer N Emergency room visit since last appointm ent. N COPD N Depression N Dermatologic Disorders N Lung Disease N Hypothyroidism N Developmental or Behavioral Disorders N Defects or Inherited Disease N Breast Problem N Difficulty Swallowing N Anesthesia Complications N History of STI N Meniere's disease N Anxiety Disorder Y Muscle, Joint, or Bone Problems N Autoimmune disease N Vision or Eye Problems N Arthritis N Polyps N Infertility N Mental Disorder N Congenital Anomalies N Acid Reflux (GERD) N Cancer N Stroke N Neurologic/Epilepsy N Endometriosis N Bladder or Kidney Problems N High Cholesterol N Liver Disease N Organ Transplant N Psychiatric/Mental Health Condition N Fibromyalgia N Dialysis N Schizophrenia N Headaches N Kidney Disease N Allergies/Hayfever N Heart Problems N Ear or Hearing Problems N Hospitalizations N Learning Disorder N Artificial Joints N Thyroid Problems N GI Problems N Acne N ADD/ADHD N Eating Disorder N Anemia N Constipation N Mental Illness N Ovarian Cancer N Diabetes N Bedwetting N Hepatitis/Liver Disease N Tuberculosis N Eczema N Diverticulitis N Abuse/Domestic Violence N Asthma N Trauma/Violence N Substance Abuse N Reflux/GERD N Depression/ depression N Hepatitis N Heart Disease N Pulmonary Embolism N Tourette Syndrome N Chronic Ear Infections N Pre-Eclampsia N Hypertension N Chicken Pox N Autism Spectrum Disorder (ASD) N Osteoporosis N Thrombophilias N Immunizations Vaccine Type Date Status Note Provider Nam e and Address Organization Details Recorded Time Tdap 04/13/2023 completed [facility] 16:21:29 Past Encounters Encounter ID Performer Location Encounter Start Date Encounter Closed Date Diagnosis/Indication Diagnosis SNOMED-CT Code Diagnosis ICD10 Code Diagnosis Note [id number] Mariajose Moran [facility] [address] [place] [address] 04/26/2024 15:08:46 04/26/2024 16:03:20 Obesity 115563775 E66.9 Increase Zepbound Generalize d anxiety disorder 78098752 F41.1 [id number] Mariajose Moran [facility] [address] [place] [id number] 10/19/2024 16:15:28 10/19/2024 16:55:57 HIV screening 820927318 Z11.4 Hepatitis C screening 41 5923085 Z11.59 Hyperlipid emia screening 380714584 Z13.220 Paresthesi a of bilateral hands 663945061 R20.2 Body mass index 30+ - obesity 676677348 Z68.38 Health Concerns Section Related Observation LastModified by Organization Detai ls LastModified Time None Recorded Concern Status LastModified by Organization Details LastModified Time None Recorded Advance Directives Directive N: Payers Insurance Date Sequence Insurance Name Policy Number Policy Baker Covered Member ID Baker Member ID Guarantor Name 10/21/2024 1 [place] [id number] Xu Montoya [id number] Xu Montoya Notes Date Note Type Note Provider Name and Address Organization Details Recorded Time 04/26/2024 text/html Patient presents to establish care.History of anxiety. Doing well with buspirone.Histor y of obesity. Has lost a little over 60 pounds with WEgovy. WEight loss stalled and switched to Zepbound. Due for refills. MEGHAN Antoine [address] [place], [address], [employer] 04/26/2024 16:55:23 10/19/2024 text/html Patient presents for follouwp.States both hands have been going numb. Happens off and on, and has happened for years, but has gotten worse, more frequent, and lasts longer. MEGHAN Antoine [address] [place], [address], [employer] 10/21/2024 15:33:45
--- OUTSIDE RECORDS SUMMARY | 2024-12-27 11:36 | XMS_ITS | Data Portability ---
Author Organization [facility] JAREN MendezS WALDRON CLOSED Address [address] [place] [address] Assessment Encounter Date Assessment Date Assessment LastModified by Organization Details LastModified Time 08/12/2022 08/12/2022 PREOPERATIVE DIAGNOSIS: Left ureteral calculus. POSTOPERATIVE DIAGNOSIS: Left ureteral calculus. PROCEDURES: Ureteroscopy, laser lithotripsy, basket extraction, stent placement. SURGEON: Terri Adam MD OPERATIVE NOTE: After the induction of general anesthesia, the patient was prepped and draped in the dorsal lithotomy position. A 21-endoscope sheath was inserted under direct vision. The urethra was normal. Prostate showed lateral lobe hypertrophy with obstruction. Bladder mucosa was normal. There was no evidence of tumor. Ureteral orifices were in normal position and configuration. Guidewire was passed up the left ureter to the level of the renal pelvis. The cystoscope was removed. A semi-rigid ureteroscope was inserted alongside the guidewire and advanced into the ureteral orifice. There was significant irritation in the distal ureter. A 2nd guidewire was passed. The stone was then visualized. Laser fiber was inserted. The stone was fragmented into multiple small pieces. The laser fiber was removed. A 1.9-Amharic basket was inserted. The larger fragments were engaged and extracted without difficulty. The ureteroscope was removed. The cystoscope was reinserted over the guidewire. A 4.8 x 26 double-J stent was passed over the guidewire and left indwelling. Strings were attached. The patient tolerated the procedure well and left the operating room in satisfactory condition. [id number] Not available 08/12/2022 12:53:23 Plan of Treatment Reminders Order Date Submit Date Provider Last Modified By Organization Details Last Modified Time Details Appointments None recorded. Lab urinalysis panel, auto 2022 023 [facility], [address], [place], [address], 3 13:33:23 Referral None recorded. Procedures None recorded. Surgeries cystoscopy, with ureteroscop y, with lithotripsy (SURG) 2022 023 [email or web address] [facility], [address] [facility], [place], [address], 3 16:28:23 Imaging None recorded. Medication Orders Percocet 5 mg-325 mg tablet 2022 023 [facility][id number], [address], [place], [place], [id number], 3 13:48:27 Cipro 500 mg tablet 2022 023 [id number], [address] [facility] [address], [place], [place], [id number], 3 09:05:49 Ditropan XL 10 mg tablet,exte nded release 2022 023 [place] [id number], [address], [id number], 3 09:05:50 Patient TargetsNo targets recorded. Patient InstructionsNo instructions recorded. Reason for Referral None Reported. Results Created Date Observation Date Name Description Value Unit Range Abnormal Flag Note LastModifiedBy Organization Detail LastModifiedTime 08/09/19 23 08/09/2022 urina lysis panel , auto Unknown Analyte Clean Catch Not Available [facility] [address], [place], [address], 08/09/2022 12:54:08 08/09/19 23 08/09/2022 urina lysis panel , auto Unknown Analyte Yellow Not Available [facility] [address], [place], [address], 08/09/2022 12:54:08 08/09/19 23 08/09/2022 urina lysis panel , auto Unknown Analyte Clear Not Available [facility] [address], [place], [address], 08/09/2022 12:54:08 08/09/1908/09/2022 urina lysis panel , auto Unknown Analyte 1.025 Not Available [facility] [address], [place], [address], 08/09/2022 12:54:08 08/09/19 23 08/09/2022 urina lysis panel , auto Unknown Analyte 1.003- 1.035 Not Available [facility] [address], [place], [address], 08/09/2022 12:54:08 08/09/19 23 08/09/2022 urina lysis panel , auto Unknown Analyte 5.0 Not Available [facility] [address], [place], [address], 08/09/2022 12:54:08 08/09/19 23 08/09/2022 urina lysis panel , auto Unknown Analyte 5.0-8. 0 Not Available [facility] [address], [place], [address], 08/09/2022 12:54:08 08/09/19 23 08/09/2022 urina lysis panel , auto Unknown Analyte Negati ve Not Available [facility] [address], [place], [address], 08/09/2022 12:54:08 08/09/19 23 08/09/2022 urina lysis panel , auto Unknown Analyte Negati ve Not Available [facility] [address], [place], [address], 08/09/2022 12:54:08 08/09/1908/09/2022 urina lysis panel , auto Unknown Analyte Negati ve Not Available [facility] [address], [place], [address], 08/09/2022 12:54:08 08/09/19 23 08/09/2022 urina lysis panel , auto Unknown Analyte Negati ve Not Available [facility] [address], [place], [address], 08/09/2022 12:54:08 08/09/19 23 08/09/2022 urina lysis panel , auto Unknown Analyte Negati ve Not Available [facility] [address], [place], [address], 08/09/2022 12:54:08 08/09/1908/09/2022 urina lysis panel , auto Unknown Analyte Negati ve Not Available [facility] [address], [place], [address], 08/09/2022 12:54:08 08/09/19 23 08/09/2022 urina lysis panel , auto Unknown Analyte Normal Not Available [facility] [address], [place], [address], 08/09/2022 12:54:08 08/09/19 23 08/09/2022 urina lysis panel , auto Unknown Analyte Normal Not Available [facility] [address], [place], [address], 08/09/2022 12:54:08 08/09/1908/09/2022 urina lysis panel , auto Unknown Analyte Negati ve Not Available [facility] [address], [place], [address], 08/09/2022 12:54:08 08/09/19 23 08/09/2022 urina lysis panel , auto Unknown Analyte Negati ve Not Available [facility] [address], [place], [address], 08/09/2022 12:54:08 08/09/19 23 08/09/2022 urina lysis panel , auto Unknown Analyte Normal Not Available [facility] [address], [place], [address], 08/09/2022 12:54:08 08/09/19 23 08/09/2022 urina lysis panel , auto Unknown Analyte Normal 1 mg/dl Not Available [facility] [address], [place], [address], 08/09/2022 12:54:08 08/09/19 23 08/09/2022 urina lysis panel , auto Unknown Analyte Negati ve Not Available [facility] [address] [place] [address] [address], [place], [address], 08/09/2022 12:54:08 08/09/19 23 08/09/2022 urina lysis panel , auto Unknown Analyte Negati ve Not Available [facility] [address] [facility] [address], [place], [address], 08/09/2022 12:54:08 08/09/19 23 08/09/2022 urina lysis panel , auto Unknown Analyte 250 Yang/ul Not Available [facility] [address] [facility] [address], [place], [address], 08/09/2022 12:54:08 08/09/19 23 08/09/2022 urina lysis panel , auto Unknown Analyte Negati ve Not Available [facility] [address] [place] [address] [address], [place], [address], 08/09/2022 12:54:08 08/12/19 23 08/16/2022 STONE SHO SIS composition SEE BELOW normal Calci um Oxala te Dihyd rate (Wedd ellit e) 20% Calci um Oxala te Monoh ydrat e (Whew ellit e) 80% See Note 1 Not Available [facility] [address] [facility] [facility], [place], [address], 08/16/2022 15:52:05 08/12/19 23 08/16/2022 STONE SHO SIS weight 0.008 g normal Note 1 This test was devel oped and its sho tical perfo rmanc e hai cteri stics have been deter mined by [employer]. It has not been clear ed or appro jonny by the FDA. This assay has been valid ated pursu ant to the CLIA regul ation s and is used for clini tirso purpo ses. TEST PERFO RMED AT: [facility] SONIA LS [facility] [address] [place] [address] GARYPoly GREEN Not Available [facility] [address] [facility], [place], [address], 08/16/2022 15:52:05 08/09/19 23 07/31/2022 CT, abdom en + pelvi s, w/o contr ast No observ ation record ed. [email or web address] [facility] [address], [place], [address], 08/09/2022 15:55:46 Result Notes None recorded. Medical Equipment None Reported. Allergies No known drug allergies Medications Name Sig Start Date Stop Date Status Note LastModified by Organization Details LastModified Time Cipro 500 mg tablet Take 1 tablet every 12 hours by oral route. 023 active Not Available Not Available Not Avai lable Ditropan XL 10 mg tablet,exte nded release Take 1 tablet every day by oral route. 023 active Not Available Not Available Not Avai lable Percocet 5 mg-325 mg tablet Take 1 tablet every 6 hours by oral route. 023 active Not Available Not Available Not Avai lable buspirone active Not Available Not Felicia ilable Not Available Vitals Date Recorded Body height Body mass index (BMI) Body weight Provider Name and Address Organization Details Last Updated DateTime 08/09/2022 187.96 cm 41.7 kg/m2 238160.52 g Minnie Fuchs [facility] 08/09/2022 12:52:54 Social History None recorded. Functional Status None recorded. Mental Status None recorded. Family History Nothing Reported. Medical History Condition Response Anxiety Disorder Y Kidney Stones Y Asthma Y Past Encounters Encounter ID Performer Location Encounter Start Date Encounter Closed Date Diagnosis/Indication Diagnosis SNOMED-CT Code Diagnosis ICD10 Code Diagnosis Note [id number] TERRI ADAM MD [facility] [address] [place] [address] 08/09/2022 12:23:30 08/09/2022 13:22:52 Ureteric stone 49756767 N20.1 Abdominal pain 70373996 R10.9 [id number] TERRI ADAM MD SURGERY SCHEDULE [address] [place] [address] 08/12/2022 06:19:13 08/12/2022 06:19:28 Ureteric stone 07995675 N20.1 Malignant tumor of testis 373784530 C62.90 Health Concerns Section Related Observation LastModified by Organization Detai ls LastModified Time None Recorded Concern Status LastModified by Organization Details LastModified Time None Recorded Advance Directives Directive None Recorded Payers Insurance Date Sequence Insurance Name Policy Number Policy Baker Covered Member ID Baker Member ID Guarantor Name 08/19/2022 1 [employer] [id number] Xu Montoya [id number] Xu Montoya Notes Date Note Type Note Provider Name and Address Organization Details Recorded Time 08/09/2022 text/html 36-year-old gentleman who has been having a 2-week history of left flank pain with radiation to the left side of the abdomen. There is no gross hematuria or dysuria. Initial CT scan showed a 6 mm stone in the distal left ureter. Repeat study was done yesterday shows a stone has not moved. Pain is still quite severe at times. He is having some nausea but no vomiting TERRI ADAM MD [address] [place], [address], [facility] 08/09/2022 13:33:51
--- OUTSIDE RECORDS SUMMARY | 2024-12-27 11:36 | XMS_ITS | Clinical Summary ---
Author Organization Healthcare Address [address] [place] [address] Care Team Providers Care Glued Wood Tester Name Role Phone Blane Field MD Primary Care Provider [phone] Family History Medical History Relation Name Comments Conversions - Other Father Family h istory unknown Conversions - Other Mother Family h istory unknown Relation Name Status Comments Father Mother Social History Tobacco Use Types Packs/Day Years Used Date Smoking Tobacco: Never Alcohol Use Standard Drinks/Week Comments No 0 (1 standard drink = 0.6 oz pur e alcohol) Sex and Gender Information Value Date Recorded Sex Assigned at Not on file Legal Sex Male 7:31 PM EDT Gender Identity Not on file Sexual Orientation Not on file Last Filed Vital Signs Vital Sign Reading Time Taken Comments Blood Pressure - - Pulse - - Temperature - - Respiratory Rate - - Oxygen Saturation - - Inhaled Oxygen Concentration - - Weight 143 kg (314 lb 15.9 oz) 02/17/2015 9:05 AM EDT Height 188 cm (6' 2 ) 02/17/2015 9:05 AM EDT Body Mass Index 40.44 02/17/2015 9:05 AM EDT Plan of Treatment Not on file Care Teams Glued Wood Tester Relationship Specialty Start Date End Date Blane Field MD [address] [place] [address] [address]1 MAKDEA Tovar [id number] PCP - General 11/24/20
--- NOTE | 2024-12-27 13:18 | MR_ITS ---
FINAL REPORT CLINICAL HISTORY: *PT HAS SCREWS/MESH IN FACE* RADICULOPATHY RIGHT ARM PAIN AND NECK PAIN COMPARISON: None FINDINGS: Multi planar MR imaging was obtained of the cervical spine. There is abnormal decreased signal throughout the cervical discs. The vertebrae are of normal height. There is slight reversal of the normal cervical lordosis. The cervical cord demonstrates normal signal and configuration. C2-C3: There is no evidence of significant disc bulge or protrusion. There is no significant facet hypertrophy. C3-C4: There is a left posterolateral disc protrusion and endplate hypertrophy which produces moderate left neural foraminal narrowing. C4-C5: There is no evidence of significant disc bulge or protrusion. There is no significant facet hypertrophy. C5-C6: A mild annular bulge is present with a moderate right posterolateral disc protrusion and moderate right neural foraminal narrowing. C6-C7: A mild annular bulge is present with a small midline disc protrusion which produces mild central canal stenosis. C7-T1: There is no evidence of significant disc bulge or protrusion. There is no significant facet hypertrophy. IMPRESSION: Multilevel cervical degenerative changes present, most prominent on the left at the C3-4 level, and on the right at the C5-6 level. Reviewed, Interpreted and Dictated by Agusto Coates MD Transcribed by Liz Leiva Authenticated and [facility]
--- NOTE | 2024-12-27 13:25 | XR_ITS ---
FINAL REPORT CLINICAL HISTORY: mri clearance. 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 Mesh is present from prior orbital floor repair on the right. Dental hardware is present. No radiopaque foreign body identified. IMPRESSION: No radiopaque foreign body identified in the orbits. Reviewed, Interpreted and Dictated by Agusto Coates MD Transcribed by Keila Kapoor Authenticated and [facility]
== END 2024-12-27 23:59 | disposition home or self-care (01) ==
LOC: RAD 11:33
PROVIDERS: PCP Physician Assistant; Visit Provider Physician Assistant
DX: M47.812 Spondylosis without myelopathy or radiculopathy, cervical region (principal); M79.89 Other specified soft tissue disorders; M79.641 Pain in right hand
CPT/HCPCS: 70200; 72141; 73110; 73130

== ENCOUNTER 2025-03-21 13:04 | Outpatient (CLI) | payer BC, SELFPAY ==
--- NOTE | 2025-03-21 13:09 | XR_ITS ---
FINAL REPORT CLINICAL HISTORY: right elbow pain FINDINGS: AP, oblique, and lateral views of the right elbow were obtained. There is no prior exam for comparison. There is no acute fracture or dislocation. Joint space is preserved. There is no joint effusion or other soft tissue abnormality. IMPRESSION: No acute osseous abnormality of the right elbow. Reviewed, Interpreted and Dictated by Magi Almazan MD Transcribed by Patricia Clay Authenticated and [facility]
--- OUTSIDE RECORDS SUMMARY | 2025-03-21 13:09 | XMS_ITS | Clinical Summary ---
Author Organization Healthcare Address [address] [place] [address] Care Team Providers Care Morning Show Host Name Role Phone Blane Field MD Primary Care Provider [phone] Family History Medical History Relation Name Comments [...] of Treatment Not on file Care Teams Morning Show Host Relationship Specialty Start Date End Date Blane Field MD [address] [place] [address] #1 #1 MAKEDA Tovar [id number] PCP - General 11/24/20
--- NOTE | 2025-03-21 14:17 | XR_ITS ---
FINAL REPORT CLINICAL HISTORY: . FINDINGS: Two views of the right shoulder were obtained. There is no fracture or dislocation. The joint space is preserved. Soft tissues are unremarkable. IMPRESSION: No acute osseous abnormality of the right shoulder. Reviewed, Interpreted and Dictated by Magi Almazan MD Transcribed by Patricia Clay Authenticated and [facility]
== END 2025-03-21 23:59 | disposition home or self-care (01) ==
LOC: RAD 13:05
PROVIDERS: PCP Physician Assistant; Visit Provider Orthopaedic Surgery
DX: M25.511 Pain in right shoulder (principal); M25.521 Pain in right elbow
CPT/HCPCS: 73030; 73080